=== PATIENT | female | born 1965 | race Caucasian/White ===

== ENCOUNTER 2017-10-19 14:42 | Emergency (ER) | payer MEDICARE, MEDICAID ==
--- NOTE | 2017-10-19 15:40 | ER Document Report ---
ED Medical Screen (RME) - General Chief Complaint: Fall Stated Complaint: FALL/RIGHT SIDE ARM AND BODY PAIN Time Seen by Provider: 10/19/17 15:39 Notes: pt fell twice yesterday, has pain in muliptle sites. no loc TRAVEL OUTSIDE OF THE [place] IN LAST 30 DAYS: No - Related Data Allergies/Adverse Reactions: Penicillins Allergy (Verified 10/19/17 14:44) Past Medical History - Social History Chew tobacco use (# tins/day): No Frequency of alcohol use: None Drug Abuse: None Renal/ Medical History: Denies: Hx Peritoneal Dialysis Physical Exam - Vital signs Vitals: Temp Pulse Resp BP Pulse Ox 97.9 F 65 18 133/92 H 93 10/19/17 14:52 10/19/17 14:52 10/19/17 14:52 10/19/17 14:52 10/19/17 14:52 Course - Vital Signs Vital signs: Temp Pulse Resp BP Pulse Ox 97.9 F 65 18 133/92 H 93 10/19/17 14:52 10/19/17 14:52 10/19/17 14:52 10/19/17 14:52 10/19/17 14:52
--- NOTE | 2017-10-19 16:25 | RADIOLOGY REPORT (SQ) ---
EXAM DESCRIPTION: ANKLE LEFT COMPLETE COMPLETED DATE/TIME: 10/19/2017 4:14 pm REASON FOR STUDY: fall/pain COMPARISON: None. NUMBER OF VIEWS: Three views. TECHNIQUE: AP, lateral, and oblique radiographic images acquired of the left ankle. LIMITATIONS: None. FINDINGS: MINERALIZATION: Normal. BONES: No acute fracture or dislocation. No worrisome bone lesions. JOINTS: Degenerative changes in the tibiotalar joint with sclerosis and osteophytes. Also degenerati ve changes in the subtalar joint. SOFT TISSUES: No soft tissue swelling. No foreign body. OTHER: No other significant finding. IMPRESSION: DEGENERATIVE CHANGES. NO ACUTE FINDINGS. TECHNICAL DOCUMENTATION: JOB ID: [id number] [employer]- All Rights Reserved Reading location - IP/workstation name: [email or web address]
--- NOTE | 2017-10-19 16:26 | RADIOLOGY REPORT (SQ) ---
EXAM DESCRIPTION: HUMERUS RIGHT COMPLETED DATE/TIME: 10/19/2017 4:14 pm REASON FOR STUDY: fall/pain COMPARISON: None. NUMBER OF VIEWS: Two views. TECHNIQUE: Two radiographic images were acquired of the right humerus to include elbow and shoulder in at least one projection. LIMITATIONS: None. FINDINGS: MINERALIZATION: Normal. BONES: No acute fracture or dislocation. No worrisome bone lesions. SOFT TISSUES: No obvious swelling or foreign body. OTHER: No other significant finding. IMPRESSION: NEGATIVE STUDY OF THE RIGHT HUMERUS. NO RADIOGRAPHIC EVIDENCE OF ACUTE INJURY. TECHNICAL DOCUMENTATION: JOB ID: [id number] [employer]- All Rights Reserved Reading location - IP/workstation name: [email or web address]
--- NOTE | 2017-10-19 16:27 | RADIOLOGY REPORT (SQ) ---
EXAM DESCRIPTION: KNEE LEFT 4 VIEW COMPLETED DATE/TIME: 10/19/2017 4:14 pm REASON FOR STUDY: fall/pain COMPARISON: None. NUMBER OF VIEWS: Four views. TECHNIQUE: AP, lateral, and both oblique radiographic images acquired of the left knee. LIMITATIONS: None. FINDINGS: MINERALIZATION: Normal. BONES: No acute fracture or dislocation. No worrisome bone lesions. JOINT: Marked degenerative changes with joint space loss, sclerosis, and osteophytes in all 3 compart ments. SOFT TISSUES: No soft tissue swelling. No radio-opaque foreign body. OTHER: No other significant finding. IMPRESSION: MARKED DEGENERATIVE JOINT DISEASE. NO RADIOGRAPHIC EVIDENCE OF ACUTE INJURY. TECHNICAL DOCUMENTATION: JOB ID: [id number] [employer]- All Rights Reserved Reading location - IP/workstation name: [email or web address]
[2017-10-19] MEDS ORDERED: HYDROCODONE/ACETAMINOPHEN 5-325 MG TABLET PO ONE (17:12)
--- NOTE | 2017-10-19 17:16 | ER Document Report ---
ED Fall - General Chief Complaint: Fall Stated Complaint: FALL/RIGHT SIDE ARM AND BODY PAIN Time Seen by Provider: 10/19/17 15:39 Mode of Arrival: Wheelchair Information source: Patient TRAVEL OUTSIDE OF THE [place] IN LAST 30 DAYS: No - HPI Patient complains to provider of: Trip and fall Occurred: Yesterday Where: Home, Public place Context: Tripped Associated symptoms: None Location of injury/pain: Ankle, Knee, Shoulder Quality of pain: Achy Severity: Moderate Pain Level: 4 Notes: Patient is a 52-year-old female presenting to the emergency room today complaining of pain in her right shoulder, her left knee and her left ankle stemming from 2 trip and falls that she sustained yesterday evening, states that initially she had mild pain, went to bed, got up several times in the middle night to go to the bathroom, and then when she woke up today she had increased pain in these areas, she denies a head injury or loss of consciousness , no nausea or vomiting - Related data Allergies/Adverse Reactions: Penicillins Allergy (Verified 10/19/17 14:44) Past Medical History - General Information source: Patient - Social History Smoking Status: Former Smoker Chew tobacco use (# tins/day): No Frequency of alcohol use: None Drug Abuse: None Family History: Reviewed & Not Pertinent Patient has suicidal ideation: No Patient has homicidal ideation: No Renal/ Medical History: Denies: Hx Peritoneal Dialysis Review of Systems - Review of Systems Constitutional: No symptoms reported EENT: No symptoms reported Cardiovascular: No symptoms reported Respiratory: No symptoms reported Gastrointestinal: No symptoms reported Genitourinary: No symptoms reported Female Genitourinary: No symptoms reported Musculoskeletal: See HPI Skin: No symptoms reported Hematologic/Lymphatic: No symptoms reported Neurological/Psychological: No symptoms reported -: Yes All other systems reviewed and negative Physical Exam - Vital signs Vitals: Temp Pulse Resp BP Pulse Ox 97.9 F 65 18 133/92 H 93 10/19/17 14:52 10/19/17 14:52 10/19/17 14:52 10/19/17 14:52 10/19/17 14:52 Interpretation: Normal - General General appearance: Appears well, Alert - HEENT Head: Normocephalic, Atraumatic Eyes: Normal Pupils: PERRL - Respiratory Respiratory status: No respiratory distress Chest status: Nontender Breath sounds: Normal Chest palpation: Normal - Cardiovascular Rhythm: Regular Heart sounds: Normal auscultation Murmur: No - Abdominal Inspection: Morbidly Obese Distension: No distension Bowel sounds: Normal Tenderness: Nontender Organomegaly: No organomegaly - Back Back: Normal, Nontender - Extremities General upper extremity: Normal color, Normal temperature General lower extremity: Normal color, Normal temperature. No: Albertina's sign Shoulder: Tender - Tender to palpate in the right shoulder anteriorly, in the soft tissue, no deformity, distal sensation and motor is intact, 2+ radial pulses Knee: Tender - Tender to palpate over the left knee with mild swelling, pain with range of motion testing, distal sensation and motor is intact Ankle: Tender - Tender to palpate over medial malleolus, pain with range of motion testing, distal sensation and motor is intact - Neurological Neuro grossly intact: Yes Cognition: Normal Orientation: AAOx4 [place] Coma Scale Eye Opening: Spontaneous [place] Coma Scale Verbal: Oriented [place] Coma Scale Motor: Obeys Commands [place] Coma Scale Total: 15 Speech: Normal Motor strength normal: LUE, RUE, LLE, RLE Sensory: Normal - Psychological Associated symptoms: Normal affect, Normal mood - Skin Skin Temperature: Warm Skin Moisture: Dry Skin Color: Normal Course - Re-evaluation Re-evalutation: 10/19/17 20:00 Imaging findings discussed with patient at bedside which are unremarkable except for mild degenerative changes, patient was placed in an Yoni wrap for the left knee, provided with pain medication and instructions for follow-up, advised to return if symptoms worsen, patient acknowledges understanding and agreement with this plan - Vital Signs Vital signs: Temp Pulse Resp BP Pulse Ox 98.3 F 73 18 138/96 H 94 10/19/17 17:36 10/19/17 17:36 10/19/17 17:36 10/19/17 17:36 10/19/17 17:36 - Diagnostic Test Radiology reviewed: Image reviewed, Reports reviewed Procedures - Immobilization Left Knee Time completed: 19:35 Pre-Proc Neuro Vasc Exam: Normal Immobilizer type: Yoni wrap Performed by: PCT Post-Proc Neuro Vasc Exam: Normal Alignment checked and good: Yes Discharge - Discharge Clinical Impression: Contusion of right arm Qualifiers: Encounter type: initial encounter Qualified Code(s): S40.021A - Contusion of right upper arm, initial encounter Sprain of left ankle Qualifiers: Encounter type: initial encounter Involved ligament of ankle: unspecified ligament Qualified Code(s): S93.402A - Sprain of unspecified ligament of left ankle, initial encounter Left knee sprain Qualifiers: Encounter type: initial encounter Involved ligament of knee: unspecified ligament Qualified Code(s): S83.92XA - Sprain of unspecified site of left knee, initial encounter Condition: Stable Disposition: HOME, SELF-CARE Instructions: Contusion ([facility]), Ice & Elevation ([facility]), Ice Packs ([facility]), Oral Narcotic Medication ([facility]), Sprained Ankle ([facility]), Sprained Knee ([facility]) Additional Instructions: Follow up with your primary care provider and an orthopedic surgeon in one to 2 days. Return to the emergency room immediately if symptoms worsen or any additional concerns. Prescriptions: Hydrocodone/Acetaminophen [Hydrocodon-Acetaminophen 5-325] 1 each PO Q6 #20 tablet Referrals: GERALDINE BRADEN DO [ACTIVE STAFF] - Follow up as needed
[2017-10-19 17:38] VITALS: BP 138/96
== END 2017-10-19 17:39 | disposition home or self-care (01) ==
LOC: ER 14:42
DX: S40.021A Contusion of right upper arm, initial encounter (principal); S93.402A Sprain of unspecified ligament of left ankle, initial encounter; S83.92XA Sprain of unspecified site of left knee, initial encounter; M79.1 Myalgia; E66.01 Morbid (severe) obesity due to excess calories; W01.0XXA Fall on same level from slipping, tripping and stumbling without subsequent striking against object, initial encounter; Y92.009 Unspecified place in unspecified non-institutional (private) residence as the place of occurrence of the external cause; Z88.0 Allergy status to penicillin
CPT/HCPCS: 99283; 73610; 73060; 73562; A9270

== ENCOUNTER 2018-06-06 13:57 | Emergency (ER) | payer MEDICARE, MEDICAID ==
--- NOTE | 2018-06-06 14:28 | ER Document Report ---
ED Medical Screen (RME) - General Chief Complaint: Headache Stated Complaint: HEADACHE, RIGHT ARM PAIN Time Seen by Provider: 06/06/18 14:17 Notes: Patient is a 52-year-old female with history of severe rheumatoid arthritis that presents to the emergency department for chief complaint of posterior headache and neck pain for almost 2 weeks. Patient states that she has pain with moving her neck, and then started having pain going down her right arm that started on Thursday. She did receive her flu vaccine in her right arm on Thursday as well.. ROS: Other than noted above, the 12 point review of systems was reviewed with the patient and were negative, all pertinent findings are included in the HPI. PHYSICAL EXAMINATION: Vital signs reviewed. GENERAL: Morbidly obese female, in no acute distress HEAD: Atraumatic, normocephalic. EYES: Pupils equal round extraocular movements intact, conjunctiva are normal. ENT: Nares patent NECK: Decreased range of motion of the neck, and tenderness with palpation bilaterally, and pain with rotation of the neck. Midline tenderness CV: Heart regular rate and rhythm LUNGS: No respiratory distress Musculoskeletal: Severe arthritic deformities to the hands bilaterally NEUROLOGICAL: Normal speech PSYCH: Normal mood, normal affect. MDM: Patient seen and examined for rapid initial assessment. Vital signs reviewed. A comprehensive ED assessment and evaluation of the patient, analysis of test results and completion of the medical decision making process will be conducted by additional ED providers. *Note is created using voice recognition software and may contain spelling, syntax or grammatical errors. TRAVEL OUTSIDE OF THE [place] IN LAST 30 DAYS: No - Related Data Allergies/Adverse Reactions: Penicillins Allergy (Verified 03/21/18 15:01) Past Medical History - Past Medical History Cardiac Medical History: Reports: Hx Hypertension Endocrine Medical History: Reports: Hx Diabetes Mellitus Type 2 Renal/ Medical History: Denies: Hx Peritoneal Dialysis Musculoskeltal Medical History: Reports Hx Arthritis - rheumatoid arthritis Psychiatric Medical History: Denies: Hx Depression Past Surgical History: Reports: Hx Abdominal Surgery - hernia repair, Hx Orthopedic Surgery - right hand, great toe, Hx Urinary Tract Surgery - bladder tacComment Only: Hx Tonsillectomy - adenoids Physical Exam - Vital signs Vitals: Temp Pulse Resp BP Pulse Ox 98.1 F 73 23 H 138/92 H 91 L 06/06/18 14:12 06/06/18 14:12 06/06/18 14:12 06/06/18 14:12 06/06/18 14:12 Course - Vital Signs Vital signs: Temp Pulse Resp BP Pulse Ox 98.1 F 73 23 H 138/92 H 91 L 06/06/18 14:12 06/06/18 14:12 06/06/18 14:12 06/06/18 14:12 06/06/18 14:12
[2018-06-06] MEDS ORDERED: MORPHINE SULFATE 10 MG/ML INJ IM ONE (14:31)
[2018-06-06] MEDS ORDERED: METOCLOPRAMIDE HCL 10 MG TABLET PO ONE (14:31)
--- NOTE | 2018-06-06 15:20 | RADIOLOGY REPORT (SQ) ---
EXAM DESCRIPTION: CT HEAD WITHOUT COMPLETED DATE/TIME: 06/06/2018 3:09 pm REASON FOR STUDY: headache COMPARISON: Concurrent cervical spine CT TECHNIQUE: Axial images acquired through the brain without intravenous contrast. Images reviewed wi th bone, brain and subdural windows. Additional sagittal and coronal reconstructions were generated. Images stored on PACS. All CT scanners at this facility use dose modulation, iterative reconstruction, and/or weight based d osing when appropriate to reduce radiation dose to as low as reasonably achievable (ALARA). [facility]: Dose Right [facility]: CareDose [facility]: Dose Right [facility]: Teradose 4D [facility]: Smart [employer] RADIATION DOSE: CT Rad equipment meets quality standard of care and radiation dose reduction techniq ues were employed. CTDIvol: 53.2 mGy. DLP: 1124 mGy-cm. mGy. LIMITATIONS: None. FINDINGS: VENTRICLES: Normal size and contour. CEREBRUM: No masses. No hemorrhage. No midline shift. No evidence for acute infarction. Normal gra y/white matter differentiation. No areas of low density in the white matter. CEREBELLUM: No masses. No hemorrhage. No alteration of density. No evidence for acute infarction. EXTRAAXIAL SPACES: No fluid collections. No masses. ORBITS AND GLOBE: No intra- or extraconal masses. Normal contour of globe without masses. CALVARIUM: No fracture. PARANASAL SINUSES: No fluid or mucosal thickening. SOFT TISSUES: Retropharyngeal course of the carotid arteries, incompletely visualized. No mass or h ematoma. OTHER: No other significant finding. IMPRESSION: NORMAL BRAIN CT WITHOUT CONTRAST. EVIDENCE OF ACUTE STROKE: NO. COMMENT: Quality ID # [id number]: Final reports with documentation of one or more dose reduction techniques (e.g., Automated exposure control, adjustment of the mA and/or kV according to patient size, use of iterative reconstruction technique) TECHNICAL DOCUMENTATION: JOB ID: [id number] [employer]- All Rights Reserved Reading location - IP/workstation name: [email or web address]
--- NOTE | 2018-06-06 15:23 | RADIOLOGY REPORT (SQ) ---
EXAM DESCRIPTION: CT CERVICAL SPINE WITHOUT COMPLETED DATE/TIME: 06/06/2018 3:08 pm REASON FOR STUDY: neck pain, headache, Right radicular pain COMPARISON: Concurrent head CT TECHNIQUE: Axial images acquired through the cervical spine without intravenous contrast. Images re viewed with lung, soft tissue and bone windows. Reconstructed coronal and sagittal MPR images review ed. Images stored on PACS. All CT scanners at this facility use dose modulation, iterative reconstruction, and/or weight based d osing when appropriate to reduce radiation dose to as low as reasonably achievable (ALARA). [facility]: Dose Right [facility]: CareDose [facility]: Dose Right [facility]: Teradose 4D [facility]: [employer] RADIATION DOSE: CT Rad equipment meets quality standard of care and radiation dose reduction techniq ues were employed. CTDIvol: 31.4 mGy. DLP: 653 mGy-cm. mGy. LIMITATIONS: None. FINDINGS: ALIGNMENT: Anatomic. MINERALIZATION: Normal. VERTEBRAL BODIES: No fractures or dislocation. DISCS: No significant disc disease. FACETS, LATERAL MASSES, POSTERIOR ELEMENTS: No fractures. No dislocation. No acute findings. Early facet arthrosis. HARDWARE: None in the spine. VISUALIZED RIBS: No fractures. LUNG APICES AND SOFT TISSUES: Calcified granuloma of the right upper lobe. Visualized lung apices ar e otherwise clear. Retropharyngeal course of the carotid arteries. Metallic clips in the right supr aclavicular region. OTHER: No other significant finding. IMPRESSION: 1. No acute fracture listhesis of the cervical spine. 2. Early facet arthrosis. TECHNICAL DOCUMENTATION: JOB ID: [id number] Quality ID # [id number]: Final reports with documentation of one or more dose reduction techniques (e.g., Au tomated exposure control, adjustment of the mA and/or kV according to patient size, use of iterative reconstruction technique) 2010 [employer]- All Rights Reserved Reading location - IP/workstation name: [email or web address]
[2018-06-06] MEDS ORDERED: KETOROLAC TROMETHAMINE 60 MG/2 ML SDV IM ONE (16:14)
[2018-06-06] MEDS ORDERED: PREDNISONE 20 MG TABLET PO ONE (16:14)
[2018-06-06] MEDS ORDERED: METHOCARBAMOL 500 MG TABLET PO ONE (16:15)
--- NOTE | 2018-06-06 16:21 | ER Document Report ---
ED General - General Chief Complaint: Headache Stated Complaint: HEADACHE, RIGHT ARM PAIN Time Seen by Provider: 06/06/18 14:17 Mode of Arrival: Wheelchair Information source: Patient Notes: This is a chronically debilitated patient with a history of rheumatoid arthritis , COPD (2-1/2 L nc), LUKE (CPAP) who presents to the emergency room with diffuse body pain for the past 2 weeks. She states that it hurts to move her neck and her arm. She states that she has had increasing pain after flu shot on the right side. TRAVEL OUTSIDE OF THE [place] IN LAST 30 DAYS: No - HPI Onset: Other - Patient's pain is been going on for the past 2 weeks Onset/Duration: Gradual Quality of pain: Dull Severity: Moderate Pain Level: 2 Associated symptoms: denies: Chest pain, Fever, Shortness of breath Exacerbated by: Movement Relieved by: Remaining still Similar symptoms previously: Yes Recently seen / treated by doctor: Yes - Related Data Allergies/Adverse Reactions: Penicillins Allergy (Verified 03/21/18 15:01) Past Medical History - General Information source: Patient - Social History Smoking Status: Former Smoker Cigarette use (# per day): No Chew tobacco use (# tins/day): No Frequency of alcohol use: None Drug Abuse: None Lives with: Family Family History: Reviewed & Not Pertinent Patient has suicidal ideation: No Patient has homicidal ideation: No - Past Medical History Cardiac Medical History: Reports: Hx Hypertension Pulmonary Medical History: Reports: Hx COPD Endocrine Medical History: Reports: Hx Diabetes Mellitus Type 2 Renal/ Medical History: Denies: Hx Peritoneal Dialysis Musculoskeletal Medical History: Reports Hx Arthritis - rheumatoid arthritis, Reports Other - Rheumatoid arthritis Psychiatric Medical History: Denies: Hx Depression Past Surgical History: Reports: Hx Abdominal Surgery - hernia repair, Hx Orthopedic Surgery - right hand, great toe, Hx Urinary Tract Surgery - bladder tacComment Only: Hx Tonsillectomy - adenoids Review of Systems - Review of Systems Constitutional: denies: Chills, Fever EENT: No symptoms reported Cardiovascular: No symptoms reported Respiratory: No symptoms reported Gastrointestinal: No symptoms reported Genitourinary: No symptoms reported Female Genitourinary: No symptoms reported Musculoskeletal: See HPI Skin: No symptoms reported Hematologic/Lymphatic: No symptoms reported Neurological/Psychological: No symptoms reported Physical Exam - Vital signs Vitals: Temp Pulse Resp BP Pulse Ox 98.1 F 73 23 H 138/92 H 91 L 06/06/18 14:12 06/06/18 14:12 06/06/18 14:12 06/06/18 14:12 06/06/18 14:12 Notes: Physical exam: GENERAL: Patient is alert and oriented x3, no acute distress. HEAD: Atraumatic, normocephalic. EYES: Pupils equal round and reactive to light, extraocular movements intact, sclera anicteric, conjunctiva are normal. ENT: TMs normal, nares patent, oropharynx clear without exudates. Moist mucous membranes. NECK: Normal range of motion, supple without obvious mass or JVD. LUNGS: Breath sounds clear to auscultation bilaterally and equal. No wheezes rales or rhonchi. HEART: Regular rate and rhythm without murmurs, rubs or gallops. ABDOMEN: Soft, normoactive bowel sounds. No tenderness to palpation. No guarding, no rebound. No masses appreciated. EXTREMITIES: Normal range of motion, no pitting or edema. No clubbing or cyanosis. NEUROLOGICAL: Cranial nerves II through XII grossly intact. Normal speech, moving all extremities. PSYCH: Normal mood, normal affect. SKIN: Warm, Dry, normal turgor, no rashes or lesions noted. Course - Vital Signs Vital signs: Temp Pulse Resp BP Pulse Ox 98 F 73 22 H 150/95 H 96 06/06/18 16:49 06/06/18 16:49 06/06/18 16:49 06/06/18 16:49 06/06/18 16:49 - Diagnostic Test Radiology reviewed: Image reviewed, Reports reviewed - CT of the head shows no acute process. CT of the neck shows arthrosis. Discharge - Discharge Clinical Impression: Arthritis to the neck, Rheumatoid arthritis Condition: Stable Disposition: HOME, SELF-CARE Additional Instructions: We discussed, the head CT showed no evidence of stroke or bleed or mass. The CT of the neck did show significant arthritis. I do believe a lot of your pain is related to the rheumatoid arthritis and the arthritis in the neck. I want you to follow-up with your automobile service writer as well as your primary care doctor. In the meantime: Take the oxycodone for pain. See the narcotic instructions below. Take the Robaxin for muscle relaxation. Take the prednisone as below: take 4 tabs X 4 days, then 3 tabs X 4 days, then 2 tabs X 4 days, then 1 tab X 4 days, the 1/2 tab X 4 days. The pain medicine you're taking prescribed as a narcotic. There are several important things you should know about this medicine: 1. Taking narcotics for too long can lead to physical and mental dependence. Take this medicine only if really needed and in the lowest quantity to achieve pain relief. 2. Do not drink alcohol while on this medicine. Alcohol interacts with narcotics and the combination can be dangerous. 3. Do not drive or operate machinery while on this medicine. 4. Narcotics do cause constipation, so drink plenty of fluids and daily stool softeners. Return to the emergency room for fever, worsening pain or any concerns or getting worse. Prescriptions: Oxycodone HCl 5 mg PO Q4HP PRN #20 capsule PRN Reason: Methocarbamol [Robaxin] 500 mg PO BID #20 tablet Prednisone 10 mg PO DAILY #42 tab.ds.pk Referrals: TACOS TOBIN NP [Primary Care Provider] - Follow up tomorrow
[2018-06-06 16:50] VITALS: BP 150/95
== END 2018-06-06 16:50 | disposition home or self-care (01) ==
LOC: ER 13:57
DX: M06.9 Rheumatoid arthritis, unspecified (principal); R51 Headache; M79.601 Pain in right arm; J44.9 Chronic obstructive pulmonary disease, unspecified; I10 Essential (primary) hypertension; E11.9 Type 2 diabetes mellitus without complications; Z88.0 Allergy status to penicillin
CPT/HCPCS: 99284; 96372; 70450; 72125; J1885; A9270 ×3; J2270; J7512

== ENCOUNTER 2018-06-23 17:15 | Inpatient (IN) | payer MEDICARE, MEDICAID ==
[2018-06-23] MEDS ORDERED: ALBUTEROL SULFATE 0.083% NEB 2.5 MG/3 ML AMPUL NEB ONE (17:55)
[2018-06-23] MEDS ORDERED: METHYLPREDNISOLONE INJ 125 MG/2 ML SDV IV ONE (17:55)
[2018-06-23] MEDS ORDERED: IPRATROPIUM/ALBUTEROL 0.5-2.5 MG/3 ML AMPUL NEB ONE ×3 (17:55→19:10)
--- NOTE | 2018-06-23 17:57 | ER Document Report ---
ED Medical Screen (RME) - General Chief Complaint: Cough Stated Complaint: DIFFICULTY BREATHING Time Seen by Provider: 06/23/18 17:44 TRAVEL OUTSIDE OF THE [place] IN LAST 30 DAYS: No - HPI Notes: 06/23/18 17:56 Patient is a 52-year-old female with COPD on 2.5 L oxygen at home that presents to the emergency department for chief complaint of shortness of breath. Patient states 2 weeks of progressively worsening shortness of breath and dyspnea. She has been using albuterol at home with minimal relief. She reports increased sputum and sinus congestion. She denies fevers. She did get her influenza v accine 3 weeks ago. She denies chest pain but states she feels a tightness in her chest. ROS: GENERAL: Denies fever of chills CV: Denies chest pain PHYSICAL EXAMINATION: GENERAL: Well-appearing, obese and in no acute distress. HEAD: Atraumatic, normocephalic. EYES: Pupils equal round extraocular movements intact, conjunctiva are normal. ENT: Nares patent NECK: Normal range of motion LUNGS: Mild increased work of breathing Musculoskeletal: Normal range of motion NEUROLOGICAL: Normal speech, normal gait. PSYCH: Normal mood, normal affect. MDM: Patient seen and examined for rapid initial assessment. Vital signs reviewed. A comprehensive ED assessment and evaluation of the patient, analysis of test results and completion of the medical decision making process will be conducted by additional ED providers. - Related Data Allergies/Adverse Reactions: Penicillins Allergy (Verified 06/23/18 17:51) Past Medical History - Social History Chew tobacco use (# tins/day): No Frequency of alcohol use: None Drug Abuse: None - Past Medical History Cardiac Medical History: Reports: Hx Hypercholesterolemia, Hx Hypertension Pulmonary Medical History: Reports: Hx COPD Endocrine Medical History: Reports: Hx Diabetes Mellitus Type 2 Renal/ Medical History: Denies: Hx Peritoneal Dialysis Musculoskeltal Medical History: Reports Hx Arthritis - rheumatoid arthritis Psychiatric Medical History: Denies: Hx Depression Past Surgical History: Reports: Hx Abdominal Surgery - hernia repair, Hx Orthopedic Surgery - right hand, great toe, Hx Thyroid Surgery - hypo, Hx Urinary Tract Surgery - bladder tacComment Only: Hx Tonsillectomy - adenoids Physical Exam - Vital signs Vitals: Temp Pulse Resp BP Pulse Ox 98.4 F 96 28 H 144/99 H 93 06/23/18 17:26 06/23/18 17:26 06/23/18 17:26 06/23/18 17:26 06/23/18 17:26 Course - Vital Signs Vital signs: Temp Pulse Resp BP Pulse Ox 98.4 F 96 28 H 144/99 H 93 06/23/18 17:26 06/23/18 17:26 06/23/18 17:26 06/23/18 17:26 06/23/18 17:26 Doctor's Discharge - Discharge Referrals: TACOS TOBIN 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
--- NOTE | 2018-06-23 18:19 | RADIOLOGY REPORT (SQ) ---
EXAM DESCRIPTION: CHEST SINGLE VIEW COMPLETED DATE/TIME: 06/23/2018 6:06 pm REASON FOR STUDY: cough COMPARISON: 03/21/2018 EXAM PARAMETERS: NUMBER OF VIEWS: One view. TECHNIQUE: Single frontal radiographic view of the chest acquired. RADIATION DOSE: NA LIMITATIONS: None. FINDINGS: LUNGS AND PLEURA: Persistent right upper lobe mass measuring 2 cm MEDIASTINUM AND HILAR STRUCTURES: Possible right hilar mass HEART AND VASCULAR STRUCTURES: Heart normal in size. Normal vasculature. BONES: No acute findings. HARDWARE: None in the chest. OTHER: No other significant finding. IMPRESSION: Persistent right upper lobe mass seen on prior CT. Possible right hilar mass No acute Findings TECHNICAL DOCUMENTATION: JOB ID: [id number] [employer]- All Rights Reserved Reading location - IP/workstation name: [email or web address]
[2018-06-23 18:27] LABS: ABSOLUTE EOSINOPHILS # (AUTO) 0.2 10^3/uL (0.0-0.6); ABSOLUTE LYMPHOCYTES (AUTO) 1.7 10^3/uL (0.5-4.7); ABSOLUTE MONOCYTES (AUTO) 0.9 10^3/uL (0.1-1.4); ABSOLUTE NEUT (AUTO) 9.4 10^3/uL (1.7-8.2); BASOPHILS % (AUTO) 0.4 % (0-2); EOSINOPHILS % (AUTO) 1.2 % (0-6); HEMATOCRIT 45.1 % (36.0-47.0); HEMOGLOBIN 15.3 g/dL (12.0-15.5); MEAN CORPUSCULAR HEMOGLOBIN 30.9 pg (27.0-33.4); MEAN CORPUSCULAR HGB CONC 33.8 g/dL (32.0-36.0); MEAN CORPUSCULAR VOLUME 91 fl (80-97); MONOCYTES % (AUTO) 7.4 % (3-13); PLATELET COUNT 311 10^3/uL (150-450); RED BLOOD COUNT 4.94 10^6/uL (3.72-5.28); RED CELL DISTRIBUTION WIDTH 13.5 % (11.5-14.0); TOTAL CELLS COUNTED % (AUTO) 100 %; WHITE BLOOD COUNT 12.2 10^3/uL (4.0-10.5)
[2018-06-23] MEDS ORDERED: NORMAL SALINE 500 ML IV ONE (19:09)
[2018-06-23] MEDS ORDERED: CEFTRIAXONE 1 GM/D5W RTU 1 GM/50 ML RTUPB IV ONE (19:18)
--- NOTE | 2018-06-23 19:20 | ER Document Report ---
ED General - General Chief Complaint: Cough Stated Complaint: DIFFICULTY BREATHING Time Seen by Provider: 06/23/18 17:44 Mode of Arrival: Medic Information source: Patient Notes: This is a debilitated 52-year-old female with rheumatoid arthritis, morbid obesity, COPD (2.5 L nasal cannula), obstructive sleep apnea, who is brought in by EMS because of worsening wheezing, shortness of breath, cough, congestion. Patient's been taking Mucinex for the past week. TRAVEL OUTSIDE OF THE [place] IN LAST 30 DAYS: No - HPI Onset: Last week Onset/Duration: Gradual Quality of pain: No pain Severity: None Pain Level: Denies Associated symptoms: Chills, Nonproductive cough, Shortness of breath Exacerbated by: Movement Relieved by: Remaining still Similar symptoms previously: Yes Recently seen / treated by doctor: Yes - Related Data Allergies/Adverse Reactions: Penicillins Allergy (Verified 06/23/18 17:51) Past Medical History - General Information source: Patient - Social History Smoking Status: Former Smoker Cigarette use (# per day): No - Patient quit in 2011 Chew tobacco use (# tins/day): No Frequency of alcohol use: None Drug Abuse: None Lives with: Family Family History: Reviewed & Not Pertinent Patient has suicidal ideation: No Patient has homicidal ideation: No - Past Medical History Cardiac Medical History: Reports: Hx Hypercholesterolemia, Hx Hypertension Pulmonary Medical History: Reports: Hx COPD, Hx Sleep Apnea Neurological Medical History: Reports: None Endocrine Medical History: Reports: Hx Diabetes Mellitus Type 2 Renal/ Medical History: Reports: None. Denies: Hx Peritoneal Dialysis Malignancy Medical History: Reports: Other - She reports history of a rheumatoid pulmonary nodule GI Medical History: Reports: None Musculoskeletal Medical History: Reports Hx Arthritis - rheumatoid arthritis Skin Medical History: Reports None Psychiatric Medical History: Reports: None Denies: Hx Depression Traumatic Medical History: Reports: None Infectious Medical History: Reports: None Past Surgical History: Reports: Hx Abdominal Surgery - hernia repair, Hx Orthopedic Surgery - right hand, great toe, Hx Thyroid Surgery - hypo, Hx Urinary Tract Surgery - bladder tacComment Only: Hx Tonsillectomy - adenoids Review of Systems - Review of Systems Constitutional: Chills. denies: Fever EENT: No symptoms reported Cardiovascular: Dyspnea. denies: Chest pain, Palpitations, Heart racing Respiratory: Cough, Short of breath, Wheezing Gastrointestinal: denies: Abdominal pain, Vomiting Genitourinary: No symptoms reported Female Genitourinary: No symptoms reported Musculoskeletal: See HPI Skin: No symptoms reported Hematologic/Lymphatic: No symptoms reported Neurological/Psychological: No symptoms reported Physical Exam - Vital signs Vitals: Temp Pulse Resp BP Pulse Ox 98.4 F 96 28 H 144/99 H 93 06/23/18 17:26 06/23/18 17:26 06/23/18 17:26 06/23/18 17:26 06/23/18 17:26 Notes: Physical exam: GENERAL: Patient is alert and answering questions, blood pressure 138/80, pulse of 95, O2 sat 94%, respiratory rate 22 HEAD: Atraumatic, normocephalic. EYES: Pupils equal round and reactive to light, extraocular movements intact, sclera anicteric, conjunctiva are normal. ENT: TMs normal, nares patent, oropharynx clear without exudates. Moist mucous membranes. NECK: Normal range of motion, supple without obvious mass or JVD. LUNGS: Breath sounds clear to auscultation bilaterally and equal. No wheezes rales or rhonchi. HEART: Regular rate and rhythm without murmurs, rubs or gallops. ABDOMEN: Soft, normoactive bowel sounds. No tenderness to palpation. No guarding, no rebound. No masses appreciated. EXTREMITIES: Normal range of motion, no pitting or edema. No clubbing or cyanosis. NEUROLOGICAL: Cranial nerves II through XII grossly intact. Normal speech, moving all extremities. PSYCH: Normal mood, normal affect. SKIN: Warm, Dry, normal turgor, no rashes or lesions noted. Course - Vital Signs Vital signs: Temp Pulse Resp BP Pulse Ox 98.7 F 92 18 137/73 H 95 06/24/18 00:04 06/24/18 00:20 18 00:20 06/24/18 00:04 06/24/18 00:20 - Laboratory Result Diagrams: 06/23/18 18:14 06/23/18 18:50 Laboratory results interpreted by me: 06/23/18 06/23/18 18:14 18:50 WBC 12.2 H Absolute Neutrophils 9.4 H Carbon Dioxide 31 H BUN 22 H Glucose 113 H Calcium 11.4 H - Diagnostic Test Radiology reviewed: Image reviewed, Reports reviewed - Upper lobe mass (known) Critical Care Note - Critical Care Note Total time excluding time spent on procedures (mins): 60 Discharge - Discharge Clinical Impression: COPD exacerbation Condition: Stable Disposition: ADMITTED INPATIENT Admitting Provider: Hospitalist - dr pedersen Unit Admitted: Telemetry
[2018-06-23 19:21] LABS: ANION GAP 9 (5-19); BLOOD UREA NITROGEN 22 mg/dL (7-20); CALCIUM 11.4 mg/dL (8.4-10.2); CARBON DIOXIDE 31 mmol/L (22-30); CHLORIDE 100 mmol/L (98-107); GLUCOSE 113 mg/dL (75-110); POTASSIUM 4.2 mmol/L (3.6-5.0); SODIUM 139.5 mmol/L (137-145)
[2018-06-23] MEDS ORDERED: ACETAMINOPHEN 325 MG TABLET PO ONE (21:13)
[2018-06-23] MEDS ORDERED: CEFTRIAXONE SODIUM 1,000 MG in DEXTROSE 5%-WATER 50 ML IV ONE (21:30)
[2018-06-23] MEDS ORDERED: ACETAMINOPHEN 325 MG TABLET PO PRN (22:05)
[2018-06-23] MEDS ORDERED: DEXTROSE 40% GEL 15 GM TUBE PO PRN ×2 (22:05)
[2018-06-23] MEDS ORDERED: GUAIFENESIN SYRP 200 MG/10 ML UDC PO PRN (22:05)
[2018-06-23] MEDS ORDERED: IPRATROPIUM/ALBUTEROL 0.5-2.5 MG/3 ML AMPUL NEB PRN (22:05)
[2018-06-23] MEDS ORDERED: DEXTROSE 50%-WATER 25 GM/50 ML DISP.SYRIN IV PRN ×2 (22:05)
[2018-06-23] MEDS ORDERED: INSULIN LISPRO 100 UNIT/ML 3 ML VIAL SUBCUT PRN (22:05)
[2018-06-23] MEDS ORDERED: GLUCAGON,HUMAN RECOMB 1 MG INJ IM PRN (22:05)
--- NOTE | 2018-06-23 22:18 | PDOC H&P ---
History of Present Illness Admission Date/PCP: 06/23/18 21:54 TACOS TOBIN NP Patient complains of: Shortness of breath and cough History of Present Illness: WOODROW RUSSELL is a 52 year old female with a past medical history of morbid obesity with a BMI of 77, obstructive sleep apnea, morbid obesity hypoventilation syndrome, oxygen dependent COPD, chronic bronchitis, rheumatoid arthritis, type 2 diabetes and profound physical debility. Patient presents with 4 days of shortness of breath and productive cough of yellow sputum, rhinorrhea and postnasal drip. In the emergency room she is found to have hypoxia of 88% on room air fever, leukocytosis but an unremarkable chest x-ray. Prompting empiric antibiotics, supplemental oxygen and referral to hospitalist for admission. 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 GI Medical History: Reports: None Musculoskeltal Medical History: Reports: Arthritis - rheumatoid arthritis Skin Medical History: Reports: None Psychiatric Medical History: Reports: None Denies: Depression, Tobacco Dependency Traumatic Medical History: Reports: None Infectious Medical History: Reports: None Past Surgical History Past Surgical History: Reports: Orthopedic Surgery - right hand, great toe Comment Only: Tonsillectomy - adenoids Social History Information Source: Patient, REPLACED BY [facility] Records Lives with: Family Smoking Status: Former Smoker Frequency of Alcohol Use: None Hx Recreational Drug Use: No Drugs: None Hx Prescription Drug Abuse: No - Advance Directive Resuscitation Status: Full Code Family History Family History: Arthritis Parental Family History Reviewed: Yes Children Family History Reviewed: Yes Sibling(s) Family History Reviewed.: Yes Medication/Allergy Home Medications: Acetaminophen [Tylenol Extra Strength] 1,000 mg PO Q6HP PRN 03/22/18 Albuterol Sulfate [Proair Respiclick] 90 mcg IH .ASDIR 03/22/18 Amlodipine Besylate [Norvasc 10 mg Tablet] 10 mg PO DAILY 03/22/18 Aspirin [Adult Aspirin] 81 mg PO DAILY 03/22/18 Atorvastatin Calcium [Lipitor 20 mg Tablet] 20 mg PO DAILY 03/22/18 Calcium Carbonate/Vitamin D3 [Calcium 500 + Vit D Caplet] 1 each PO DAILY 03/22/18 Levothyroxine Sodium [Synthroid 0.025 mg Tablet] 25 mcg PO DAILY 03/22/18 Levothyroxine Sodium [Synthroid] 200 mcg PO DAILY 03/22/18 Metformin HCl [Glucophage 500 mg Tablet] 500 mg PO Q12 03/22/18 Metoprolol Tartrate [Lopressor 50 mg Tablet] 50 mg PO DAILY 03/22/18 Umeclidinium Brm/Vilanterol Tr [Anoro Ellipta 62.5-25 Mcg INH] 1 each IH DAILY 03/22/18 Prednisone [Deltasone 20 mg Tablet] 40 mg PO DAILY #6 tablet 03/25/18 Methocarbamol [Robaxin] 500 mg PO BID #20 tablet 06/06/18 Oxycodone HCl 5 mg PO Q4HP PRN #20 capsule 06/06/18 Prednisone 10 mg PO DAILY #42 tab.ds.pk 06/06/18 Allergies/Adverse Reactions: Penicillins Allergy (Verified 06/23/18 17:51) Review of Systems Constitutional: PRESENT: fatigue, weakness. ABSENT: chills, fever(s), headache(s), weight gain, weight loss Eyes: ABSENT: visual disturbances Ears: ABSENT: hearing changes Nose, Mouth, and Throat: PRESENT: as per HPI, sore throat. ABSENT: headache(s) Cardiovascular: ABSENT: chest pain, dyspnea on exertion, edema, orthropnea, palpitations Respiratory: PRESENT: as per HPI, cough, dyspnea, sputum. ABSENT: hemoptysis Gastrointestinal: ABSENT: abdominal pain, constipation, diarrhea, hematemesis, hematochezia, nausea, vomiting Genitourinary: ABSENT: dysuria, hematuria Musculoskeletal: ABSENT: joint swelling Integumentary: ABSENT: rash, wounds Neurological: ABSENT: abnormal gait, abnormal speech, confusion, dizziness, focal weakness, syncope Psychiatric: ABSENT: anxiety, depression, homidical ideation, suicidal ideation Endocrine: ABSENT: cold intolerance, heat intolerance, polydipsia, polyuria Hematologic/Lymphatic: ABSENT: easy bleeding, easy bruising Physical Exam Vital Signs: Temp Pulse Resp BP Pulse Ox 98.5 F 96 22 H 146/92 H 92 06/23/18 21:07 06/23/18 17:26 06/23/18 20:00 06/23/18 18:56 06/23/18 20:00 Intake & Output 06/22/18 06/23/18 06/24/18 11:59 11:59 11:59 Intake Total 550 Balance 550 Weight 166.8 kg General appearance: PRESENT: cooperative, mild distress, morbidly obese. ABSENT: disheveled Head exam: PRESENT: atraumatic, normocephalic Eye exam: PRESENT: conjunctiva pink, EOMI, PERRLA. ABSENT: scleral icterus Ear exam: PRESENT: normal external ear exam Mouth exam: PRESENT: moist, tongue midline Neck exam: ABSENT: carotid bruit, JVD, lymphadenopathy, thyromegaly Respiratory exam: PRESENT: accessory muscle use, clear to auscultation yung, prolonged expiratory phas, symmetrical, tachypnea. ABSENT: rales, rhonchi, wheezes Cardiovascular exam: PRESENT: RRR. ABSENT: diastolic murmur, rubs, systolic murmur Pulses: PRESENT: normal dorsalis pedis pul Vascular exam: PRESENT: normal capillary refill GI/Abdominal exam: PRESENT: normal bowel sounds, soft. ABSENT: distended, guarding, mass, organolmegaly, rebound, tenderness Rectal exam: PRESENT: deferred Extremities exam: PRESENT: full ROM, +1 edema. ABSENT: calf tenderness, clubbing, pedal edema Neurological exam: PRESENT: alert, awake, oriented to person, oriented to place, oriented to time, oriented to situation, CN II-XII grossly intact. ABSENT: motor sensory deficit Psychiatric exam: PRESENT: appropriate affect, normal mood. ABSENT: homicidal ideation, suicidal ideation Skin exam: PRESENT: dry, intact, warm. ABSENT: cyanosis, rash Results Laboratory Results: 06/23/18 18:14 06/23/18 18:50 06/23/18 06/23/18 06/23/18 18:14 18:14 18:50 WBC 12.2 H RBC 4.94 Hgb 15.3 Hct 45.1 MCV 91 MCH 30.9 MCHC 33.8 RDW 13.5 Plt Count 311 Seg Neutrophils % 77.0 Lymphocytes % 14.0 Monocytes % 7.4 Eosinophils % 1.2 Basophils % 0.4 Absolute Neutrophils 9.4 H Absolute Lymphocytes 1.7 Absolute Monocytes 0.9 Absolute Eosinophils 0.2 Absolute Basophils 0.0 Sodium Cancelled 139.5 Potassium Cancelled 4.2 Chloride Cancelled 100 Carbon Dioxide Cancelled 31 H Anion Gap Cancelled 9 BUN Cancelled 22 H Creatinine Cancelled 0.74 Est GFR ( Amer) Cancelled > 60 Est GFR (Non-Af Amer) Cancelled > 60 Glucose Cancelled 113 H Calcium Cancelled 11.4 H 06/23/18 06/23/18 18:14 18:50 Troponin I Cancelled < 0.012 Impressions: Chest X-Ray 06/23/18 17:44 IMPRESSION: Persistent right upper lobe mass seen on prior CT. Possible right hilar mass No acute Findings Assessment & Plan - Diagnosis (1) Acute exacerbation of chronic bronchitis Is this a current diagnosis for this admission?: Yes Plan: Observation on monitored bed, incentive spirometry, flutter valve, chlorpheniramine, Flonase and antibiotics. Consider steroids if not improved (2) Acute and chronic respiratory failure Is this a current diagnosis for this admission?: Yes Plan: Multifactorial secondary to morbid obesity hypoventilation and acute bronchitis, #1 and BiPAP. (3) Morbid obesity with alveolar hypoventilation Is this a current diagnosis for this admission?: Yes Plan: BiPAP while asleep, evaluate TSH (4) Hypercalcemia Is this a current diagnosis for this admission?: Yes Plan: Unclear cause, reevaluate in a.m. chemistry after hydration (5) Diabetes 1.5, managed as type 2 Is this a current diagnosis for this admission?: Yes Plan: Follow-up A1c, hold metformin, Humalog sliding scale q. before meals - Time Time Spent: 50 to 70 Minutes - Inpatient Certification Medical Necessity: Need Close Monitoring Due to Risk of Patient Decompensation
[2018-06-23] MEDS ORDERED: AZITHROMYCIN INJ 500 MG VIAL IV PRN (22:21)
[2018-06-23] MEDS ORDERED: CHLORPHENIRAMINE MALEATE 4 MG TABLET PO ONE (22:30)
[2018-06-23] MEDS ORDERED: LACTULOSE SYRUP 20 GM/30 ML UDCUP PO ONE (22:30)
[2018-06-23] MEDS ORDERED: ATORVASTATIN CALCIUM 20 MG TABLET PO ONE (22:30)
[2018-06-23] MEDS ORDERED: AZITHROMYCIN 500 MG in DEXTROSE 5%-WATER 250 ML IV ONE (23:00)
[2018-06-24] MEDS: IPRATROPIUM/ALBUTEROL 0.5-2.5 MG/3 ML AMPUL NEB SCH ×3 (00:17→16:36)
[2018-06-24] MEDS: HEPARIN SOD (PORCINE) 5,000 UNIT/ML 1 ML SYRINGE SUBCUT SCH ×3 (06:09→22:02)
[2018-06-24] MEDS: LEVOTHYROXINE SODIUM 0.1 MG TABLET PO SCH (06:09)
[2018-06-24] MEDS ORDERED: CHLORPHENIRAMINE MALEATE 4 MG TABLET ONE (06:12)
[2018-06-24 06:22] LABS: ABSOLUTE LYMPHOCYTES (AUTO) 0.5 10^3/uL (0.5-4.7); ABSOLUTE MONOCYTES (AUTO) 0.1 10^3/uL (0.1-1.4); BASOPHILS % (AUTO) 0.2 % (0-2); HEMATOCRIT 40.3 % (36.0-47.0); HEMOGLOBIN 13.6 g/dL (12.0-15.5); MEAN CORPUSCULAR HEMOGLOBIN 31.1 pg (27.0-33.4); MEAN CORPUSCULAR HGB CONC 33.9 g/dL (32.0-36.0); MEAN CORPUSCULAR VOLUME 92 fl (80-97); MONOCYTES % (AUTO) 1.6 % (3-13); PLATELET COUNT 215 10^3/uL (150-450); RED BLOOD COUNT 4.38 10^6/uL (3.72-5.28); RED CELL DISTRIBUTION WIDTH 13.2 % (11.5-14.0); SEGMENTED NEUTROPHILS % (AUTO) 92.2 % (42-78); TOTAL CELLS COUNTED % (AUTO) 100 %; WHITE BLOOD COUNT 8.7 10^3/uL (4.0-10.5)
[2018-06-24] MEDS: CHLORPHENIRAMINE MALEATE 4 MG TABLET PO SCH ×3 (06:38→22:02)
[2018-06-24 06:39] LABS: ANION GAP 12 (5-19); BLOOD UREA NITROGEN 19 mg/dL (7-20); CALCIUM 10.8 mg/dL (8.4-10.2); CARBON DIOXIDE 26 mmol/L (22-30); CHLORIDE 102 mmol/L (98-107); GLUCOSE 189 mg/dL (75-110); POTASSIUM 4.6 mmol/L (3.6-5.0); SODIUM 139.6 mmol/L (137-145)
--- NOTE | 2018-06-24 07:43 | EKG REPORT ---
SEVERITY:- OTHERWISE NORMAL ECG - SINUS TACHYCARDIA : Confirmed by: Osvaldo Neal MD 24-Jun-2018 07:42:33
[2018-06-24] MEDS: METOPROLOL TARTRATE 50 MG TABLET PO SCH (09:48)
[2018-06-24] MEDS: ASPIRIN 81 MG TABLET, ENT COATED PO SCH (09:48)
[2018-06-24] MEDS: FLUTICASONE NASAL SPRAY 50 MCG/SPRY 120 SPRAY/16 GM NASL SCH ×2 (09:49→22:01)
[2018-06-24] MEDS: PSYLLIUM SEED-SF 5.85 GM PACKET PO SCH (09:50)
--- NOTE | 2018-06-24 12:18 | PDOC PROGRESS REPORT ---
Subjective Progress Note for:: 06/24/18 Subjective:: This is a very pleasant but unfortunate 52 years old female patient brought by EMS with chief complaint of shortness of breath. Patient has underlying COPD, hypertension, hyperlipidemia, rheumatoid arthritis, obstructive sleep apnea and super morbid obesity. Patient is being treated accordingly. This morning I seen patient lying flat and she is on CPAP with full mask. She reported some improvement in her condition. Reason For Visit: ACUTE BRONCHITIS,LUKE,MORBID OBESITY,HYPERCALCEMIA Physical Exam Vital Signs: Temp Pulse Resp BP Pulse Ox 97.6 F 79 19 135/79 H 96 06/24/18 08:12 06/24/18 08:12 06/24/18 08:12 06/24/18 08:12 06/24/18 08:12 Intake & Output 06/23/18 06/24/18 06/25/18 06:59 06:59 06:59 Intake Total 800 Balance 800 Weight 163.3 kg General appearance: PRESENT: mild distress Eye exam: PRESENT: conjunctiva pink Neck exam: ABSENT: carotid bruit, JVD, lymphadenopathy, thyromegaly Respiratory exam: PRESENT: crackles, rhonchi, wheezes Cardiovascular exam: PRESENT: RRR. ABSENT: diastolic murmur, rubs, systolic murmur GI/Abdominal exam: PRESENT: other - Morbidly obese abdomen Musculoskeletal exam: PRESENT: other - Upper extremity deformity Results Laboratory Results: 06/24/18 05:18 06/24/18 05:18 06/23/18 06/23/18 06/23/18 18:14 18:14 18:50 WBC 12.2 H RBC 4.94 Hgb 15.3 Hct 45.1 MCV 91 MCH 30.9 MCHC 33.8 RDW 13.5 Plt Count 311 Seg Neutrophils % 77.0 Lymphocytes % 14.0 Monocytes % 7.4 Eosinophils % 1.2 Basophils % 0.4 Absolute Neutrophils 9.4 H Absolute Lymphocytes 1.7 Absolute Monocytes 0.9 Absolute Eosinophils 0.2 Absolute Basophils 0.0 Sodium Cancelled 139.5 Potassium Cancelled 4.2 Chloride Cancelled 100 Carbon Dioxide Cancelled 31 H Anion Gap Cancelled 9 BUN Cancelled 22 H Creatinine Cancelled 0.74 Est GFR ( Amer) Cancelled > 60 Est GFR (Non-Af Amer) Cancelled > 60 Glucose Cancelled 113 H Calcium Cancelled 11.4 H TSH 06/23/18 06/24/18 06/24/18 18:50 05:18 05:18 WBC 8.7 RBC 4.38 Hgb 13.6 Hct 40.3 MCV 92 MCH 31.1 MCHC 33.9 RDW 13.2 Plt Count 215 Seg Neutrophils % 92.2 H Lymphocytes % 6.0 L Monocytes % 1.6 L Eosinophils % 0.0 Basophils % 0.2 Absolute Neutrophils 8.0 Absolute Lymphocytes 0.5 Absolute Monocytes 0.1 Absolute Eosinophils 0.0 Absolute Basophils 0.0 Sodium 139.6 Potassium 4.6 Chloride 102 Carbon Dioxide 26 Anion Gap 12 BUN 19 Creatinine 0.59 Est GFR ( Amer) > 60 Est GFR (Non-Af Amer) > 60 Glucose 189 H Calcium 10.8 H TSH 3.83 06/23/18 06/23/18 18:14 18:50 Troponin I Cancelled < 0.012 Impressions: Chest X-Ray 06/23/18 17:44 IMPRESSION: Persistent right upper lobe mass seen on prior CT. Possible right hilar mass No acute Findings Assessment & Plan - Diagnosis (1) Acute and chronic respiratory failure Is this a current diagnosis for this admission?: Yes Plan: Continue current regimen (2) Diabetes 1.5, managed as type 2 Is this a current diagnosis for this admission?: Yes (3) COPD exacerbation Is this a current diagnosis for this admission?: Yes Plan: Continue current regimen (4) Hypertension Is this a current diagnosis for this admission?: Yes Plan: Continue current treatment (5) Morbid obesity with BMI of 50.0-59.9, adult Is this a current diagnosis for this admission?: Yes Plan: Lifestyle modification advised. (6) Rheumatoid arthritis Qualifiers: Rheumatoid arthritis location: multiple sites Is this a current diagnosis for this admission?: Yes Plan: In remission
[2018-06-24] MEDS: CEFTRIAXONE SODIUM 1,000 MG in DEXTROSE 5%-WATER 50 ML IV SCH (17:54)
[2018-06-24] MEDS ORDERED: CEFTRIAXONE 1 GM/D5W RTU 1 GM/50 ML RTUPB IV SCH (18:00)
[2018-06-24] MEDS: ATORVASTATIN CALCIUM 20 MG TABLET PO SCH (22:02)
[2018-06-24] MEDS: AZITHROMYCIN 500 MG in DEXTROSE 5%-WATER 250 ML IV SCH (22:05)
[2018-06-25] MEDS: IPRATROPIUM/ALBUTEROL 0.5-2.5 MG/3 ML AMPUL NEB SCH ×4 (00:16→23:50)
[2018-06-25] MEDS: HEPARIN SOD (PORCINE) 5,000 UNIT/ML 1 ML SYRINGE SUBCUT SCH ×3 (05:44→22:47)
[2018-06-25] MEDS: CHLORPHENIRAMINE MALEATE 4 MG TABLET PO SCH ×3 (05:44→22:47)
[2018-06-25] MEDS: LEVOTHYROXINE SODIUM 0.1 MG TABLET PO SCH (05:44)
[2018-06-25] MEDS: METOPROLOL TARTRATE 50 MG TABLET PO SCH (09:29)
[2018-06-25] MEDS: FLUTICASONE NASAL SPRAY 50 MCG/SPRY 120 SPRAY/16 GM NASL SCH ×2 (09:29→22:47)
[2018-06-25] MEDS: ASPIRIN 81 MG TABLET, ENT COATED PO SCH (09:30)
[2018-06-25] MEDS: PSYLLIUM SEED-SF 5.85 GM PACKET PO SCH (09:30)
[2018-06-25] MEDS: NYSTATIN TOPICAL POWDER 15 GM TP SCH ×2 (12:48→22:47)
--- NOTE | 2018-06-25 14:02 | PDOC PROGRESS REPORT ---
Subjective Progress Note for:: 06/25/18 Subjective:: I seen patient resting in bed. She is complaining of cough and shortness of breath. Otherwise patient is doing relatively better. Reason For Visit: BRONCHITIS,LUKE,MORBID OBESITY Physical Exam Vital Signs: Temp Pulse Resp BP Pulse Ox 98.2 F 62 21 H 119/65 96 06/25/18 11:22 06/25/18 11:22 06/25/18 11:22 06/25/18 11:22 06/25/18 11:22 Intake & Output 06/24/18 06/25/18 06/26/18 06:59 06:59 06:59 Intake Total 800 1318 Output Total 1445 Balance 800 -127 Weight 163.3 kg 165.5 kg General appearance: PRESENT: mild distress Eye exam: PRESENT: conjunctiva pink Mouth exam: PRESENT: moist Respiratory exam: PRESENT: wheezes Cardiovascular exam: PRESENT: RRR. ABSENT: diastolic murmur, rubs, systolic murmur GI/Abdominal exam: PRESENT: normal bowel sounds, soft. ABSENT: distended, guarding, mass, organolmegaly, rebound, tenderness Extremities exam: PRESENT: other - Contracted and deformed hands Neurological exam: PRESENT: alert, awake, oriented to time, oriented to situation Psychiatric exam: PRESENT: normal mood Results Laboratory Results: 06/24/18 05:18 06/24/18 05:18 06/23/18 06/23/18 18:14 18:50 Troponin I Cancelled < 0.012 Impressions: Chest X-Ray 06/23/18 17:44 IMPRESSION: Persistent right upper lobe mass seen on prior CT. Possible right hilar mass No acute Findings Assessment & Plan - Diagnosis (1) Acute and chronic respiratory failure Is this a current diagnosis for this admission?: Yes Plan: Continue current regimen (2) Diabetes 1.5, managed as type 2 Is this a current diagnosis for this admission?: Yes Plan: Continue sliding scale (3) COPD exacerbation Is this a current diagnosis for this admission?: Yes Plan: Continue current regimen (4) Hypertension Is this a current diagnosis for this admission?: Yes Plan: Continue current treatment (5) Morbid obesity with BMI of 50.0-59.9, adult Is this a current diagnosis for this admission?: Yes Plan: Lifestyle modification advised. (6) Rheumatoid arthritis Qualifiers: Rheumatoid arthritis location: multiple sites Is this a current diagnosis for this admission?: Yes Plan: In remission
[2018-06-25] MEDS: CEFTRIAXONE SODIUM 1,000 MG in DEXTROSE 5%-WATER 50 ML IV SCH (17:51)
[2018-06-25] MEDS: ATORVASTATIN CALCIUM 20 MG TABLET PO SCH (22:47)
[2018-06-25] MEDS: AZITHROMYCIN 500 MG in DEXTROSE 5%-WATER 250 ML IV SCH (22:47)
[2018-06-26] MEDS: LEVOTHYROXINE SODIUM 0.1 MG TABLET PO SCH (05:49)
[2018-06-26] MEDS: CHLORPHENIRAMINE MALEATE 4 MG TABLET PO SCH ×3 (05:49→21:13)
[2018-06-26] MEDS: HEPARIN SOD (PORCINE) 5,000 UNIT/ML 1 ML SYRINGE SUBCUT SCH ×3 (05:51→21:11)
[2018-06-26] MEDS: IPRATROPIUM/ALBUTEROL 0.5-2.5 MG/3 ML AMPUL NEB SCH ×2 (09:27→16:31)
[2018-06-26] MEDS: NYSTATIN TOPICAL POWDER 15 GM TP SCH ×2 (10:05→21:12)
[2018-06-26] MEDS: METOPROLOL TARTRATE 50 MG TABLET PO SCH (10:05)
[2018-06-26] MEDS: ASPIRIN 81 MG TABLET, ENT COATED PO SCH (10:05)
[2018-06-26] MEDS: FLUTICASONE NASAL SPRAY 50 MCG/SPRY 120 SPRAY/16 GM NASL SCH ×2 (10:05→21:14)
[2018-06-26] MEDS: PSYLLIUM SEED-SF 5.85 GM PACKET PO SCH (10:05)
[2018-06-26] MEDS: METHYLPREDNISOLONE INJ 40 MG/1 ML SDV IV SCH ×2 (10:10→14:43)
--- NOTE | 2018-06-26 16:15 | PDOC PROGRESS REPORT ---
Subjective Subjective:: Patient seen and examined at bedside. He is awake alert and oriented. Her breathing is improving. Her A1c is 5.5 which reflect this at her diabetes is well controlled. If she remains stable she is potential discharge for tomorrow. Reason For Visit: BRONCHITIS,LUKE,MORBID OBESITY Physical Exam Vital Signs: Temp Pulse Resp BP Pulse Ox 97.8 F 70 21 H 134/66 H 95 06/26/18 12:00 06/26/18 12:00 06/26/18 12:00 06/26/18 12:00 06/26/18 12:00 Intake & Output 06/25/18 06/26/18 06/27/18 06:59 06:59 06:59 Intake Total 1318 1545 Output Total 1445 900 Balance -127 645 Weight 165.5 kg 166 kg General appearance: PRESENT: no acute distress Head exam: PRESENT: atraumatic Eye exam: PRESENT: conjunctiva pink Mouth exam: PRESENT: moist Neck exam: ABSENT: carotid bruit, JVD, lymphadenopathy, thyromegaly Respiratory exam: PRESENT: clear to auscultation yung. ABSENT: rales, rhonchi, wheezes Cardiovascular exam: PRESENT: RRR. ABSENT: diastolic murmur, rubs, systolic murmur GI/Abdominal exam: PRESENT: normal bowel sounds, soft. ABSENT: distended, guarding, mass, organolmegaly, rebound, tenderness Neurological exam: PRESENT: alert, awake, oriented to time, oriented to situation Results Laboratory Results: 06/24/18 05:18 06/24/18 05:18 06/23/18 06/23/18 18:14 18:50 Troponin I Cancelled < 0.012 Impressions: Chest X-Ray 06/23/18 17:44 IMPRESSION: Persistent right upper lobe mass seen on prior CT. Possible right hilar mass No acute Findings Assessment & Plan - Diagnosis (1) Acute and chronic respiratory failure Is this a current diagnosis for this admission?: Yes Plan: Continue current regimen (2) Diabetes 1.5, managed as type 2 Is this a current diagnosis for this admission?: Yes Plan: Continue sliding scale (3) COPD exacerbation Is this a current diagnosis for this admission?: Yes Plan: Continue current regimen (4) Hypertension Is this a current diagnosis for this admission?: Yes Plan: Continue current treatment (5) Morbid obesity with BMI of 50.0-59.9, adult Is this a current diagnosis for this admission?: Yes Plan: Lifestyle modification advised. (6) Rheumatoid arthritis Qualifiers: Rheumatoid arthritis location: multiple sites Is this a current diagnosis for this admission?: Yes Plan: In remission
[2018-06-26] MEDS: CEFTRIAXONE SODIUM 1,000 MG in DEXTROSE 5%-WATER 50 ML IV SCH (17:45)
[2018-06-26] MEDS: AZITHROMYCIN 500 MG in DEXTROSE 5%-WATER 250 ML IV SCH (21:12)
[2018-06-26] MEDS: ATORVASTATIN CALCIUM 20 MG TABLET PO SCH (21:13)
[2018-06-27] MEDS: IPRATROPIUM/ALBUTEROL 0.5-2.5 MG/3 ML AMPUL NEB SCH ×3 (00:25→15:54)
[2018-06-27] MEDS: HEPARIN SOD (PORCINE) 5,000 UNIT/ML 1 ML SYRINGE SUBCUT SCH ×2 (06:09→13:45)
[2018-06-27] MEDS: CHLORPHENIRAMINE MALEATE 4 MG TABLET PO SCH ×2 (06:09→15:22)
[2018-06-27] MEDS: LEVOTHYROXINE SODIUM 0.1 MG TABLET PO SCH (06:09)
[2018-06-27 07:04] LABS: ARTERIAL BLOOD BASE EXCESS 3.8 mmol/L; ARTERIAL BLOOD H2CO3 1.42 mmol/L (1.05-1.35); ARTERIAL BLOOD HCO3 29.2 mmol/L (20-24); ARTERIAL BLOOD O2 SATURATION 99.5 % (94-98); ARTERIAL BLOOD PCO2 47.2 mmHg (35-45); ARTERIAL BLOOD PH 7.41 (7.35-7.45); ARTERIAL BLOOD PO2 241.7 mmHg (80-100); ARTERIAL BLOOD TOTAL CO2 30.7 mmol/L (21-25)
[2018-06-27 07:10] LABS: ARTERIAL BLOOD FIO2 30%
[2018-06-27] MEDS ORDERED: PREDNISONE 20 MG TABLET PO SCH (10:00)
[2018-06-27] MEDS: ASPIRIN 81 MG TABLET, ENT COATED PO SCH (10:19)
[2018-06-27] MEDS: METOPROLOL TARTRATE 50 MG TABLET PO SCH (10:19)
[2018-06-27] MEDS: FLUTICASONE NASAL SPRAY 50 MCG/SPRY 120 SPRAY/16 GM NASL SCH (10:21)
--- NOTE | 2018-06-27 10:23 | PDOC DISCHARGE SUMMARY ---
General - Admit/Disc Date/PCP Admission Date/Primary Care Provider: 06/25/18 11:30 TACOS TOBIN NP Discharge Date: 06/27/18 - Discharge Diagnosis (1) Acute and chronic respiratory failure Is this a current diagnosis for this admission?: Yes (2) Diabetes 1.5, managed as type 2 Is this a current diagnosis for this admission?: Yes (3) COPD exacerbation Is this a current diagnosis for this admission?: Yes (4) Hypertension Is this a current diagnosis for this admission?: Yes (5) Morbid obesity with BMI of 50.0-59.9, adult Is this a current diagnosis for this admission?: Yes (6) Rheumatoid arthritis Is this a current diagnosis for this admission?: Yes - Additional Information Resuscitation Status: Full Code Home Medications: Albuterol Sulfate [Proair Respiclick] 2 puff IH Q4HP PRN 06/24/18 Amlodipine Besylate [Norvasc 5 mg Tablet] 5 mg PO DAILY 06/24/18 Aspirin [Aspirin 81 mg Chewable Tablet] 81 mg PO DAILY 06/24/18 Atorvastatin Calcium [Lipitor 40 mg Tablet] 40 mg PO DAILY 06/24/18 Calcium Carbonate/Vitamin D3 [Calcium 500 + Vit D Caplet] 2 each PO DAILY 06/24/18 Levothyroxine Sodium [Synthroid 0.025 mg Tablet] 0.025 mg PO DAILY@0600 06/24/18 Levothyroxine Sodium [Synthroid] 200 mcg PO DAILY@0600 06/24/18 Metformin HCl [Glucophage 500 mg Tablet] 500 mg PO Q12 06/24/18 Metoprolol Tartrate [Lopressor 50 mg Tablet] 50 mg PO DAILY 06/24/18 Umeclidinium Brm/Vilanterol Tr [Anoro Ellipta 62.5-25 Mcg INH] 1 each IH DAILY 06/24/18 History of Present Illness History of Present Illness: WOODROW RUSSELL is a 52 year old female with a past medical history of morbid obesity with a BMI of 77, obstructive sleep apnea, morbid obesity hypoventilation syndrome, oxygen dependent COPD, chronic bronchitis, rheumatoid arthritis, type 2 diabetes and profound physical debility. Patient presents with 4 days of shortness of breath and productive cough of yellow sputum, rhinorrhea and postnasal drip. In the emergency room she is found to have hypoxia of 88% on room air fever, leukocytosis but an unremarkable chest x-ray. Prompting empiric antibiotics, supplemental oxygen and referral to hospitalist for admission. Hospital Course Hospital Course: This is a very pleasant but unfortunate 52 years old female patient brought by EMS with chief complaint of shortness of breath. Patient has underlying COPD, hypertension, hyperlipidemia, rheumatoid arthritis, obstructive sleep apnea and super morbid obesity. Patient is being treated accordingly with Zithromax and ceftriaxone, Solu-Medrol, DuoNeb and CPAP for her obstructive sleep apnea. Her other comorbid conditions also treated accordingly. Surprisingly, her diabetes is well controlled with hemoglobin A1c of 5.5 despite being super morbid obese. Patient counseled to do lifestyle modification. This morning I seen patient lying flat and she is on CPAP with full mask. Currently patient is at her baseline. I will discharge her home with prednisone 40 mg p.o. daily for 5 days and Zithromax 500 mg p.o. daily for 5 days. Patient advised to follow-up with her primary care physician. Physical Exam Vital Signs: Temp Pulse Resp BP Pulse Ox 97.7 F 79 22 H 140/72 H 99 06/27/18 07:14 06/27/18 09:03 06/27/18 09:03 06/27/18 07:14 06/27/18 09:03 Intake & Output 06/26/18 06/27/18 06/28/18 06:59 06:59 06:59 Intake Total 1545 2170 Output Total 900 Balance 645 2170 Weight 166 kg 167.9 kg General appearance: PRESENT: mild distress Head exam: PRESENT: atraumatic Eye exam: PRESENT: conjunctiva pink Mouth exam: PRESENT: moist Neck exam: ABSENT: carotid bruit, JVD, lymphadenopathy, thyromegaly Respiratory exam: PRESENT: wheezes - Occasional bilateral Cardiovascular exam: PRESENT: RRR. ABSENT: diastolic murmur, rubs, systolic murmur GI/Abdominal exam: PRESENT: normal bowel sounds, soft. ABSENT: distended, guarding, mass, organolmegaly, rebound, tenderness Neurological exam: PRESENT: alert, awake, oriented to time, oriented to situation Results Laboratory Results: 06/24/18 05:18 06/24/18 05:18 06/27/18 06:48 Carbonic Acid 1.42 H HCO3/H2CO3 Ratio 20:1 ABG pH 7.41 ABG pCO2 47.2 H ABG pO2 241.7 H ABG HCO3 29.2 H ABG O2 Saturation 99.5 H ABG Base Excess 3.8 FiO2 30% 06/23/18 06/23/18 18:14 18:50 Troponin I Cancelled < 0.012 Impressions: Chest X-Ray 06/23/18 17:44 IMPRESSION: Persistent right upper lobe mass seen on prior CT. Possible right hilar mass No acute Findings Qualifiers - * PATIENT BEING DISCHARGED WITH ANY OF THE FOLLOWING DIAGNOSIS: No
[2018-06-27] MEDS: PSYLLIUM SEED-SF 5.85 GM PACKET PO SCH (10:24)
[2018-06-27] MEDS: NYSTATIN TOPICAL POWDER 15 GM TP SCH (10:25)
[2018-06-27 16:02] VITALS: BP 139/83
== END 2018-06-27 17:48 | disposition home or self-care (01) | DRG 190 ==
LOC: ER 17:15 → INTOOBSV 21:54 → EH 21:54 → 4W 23:22 → OBSVTOIN 06-25 11:30 → 4S 06-25 17:54
PROVIDERS: ADMIT Internal Medicine; ATTEND Internal Medicine
PROC: 5A09457 Assistance with Respiratory Ventilation, 24-96 Consecutive Hours, Continuous Positive Airway Pressure (ICD-10-PCS; principal; 2018-06-24)
DX: J44.1 Chronic obstructive pulmonary disease with (acute) exacerbation (principal); J96.20 Acute and chronic respiratory failure, unspecified whether with hypoxia or hypercapnia; Z68.45 Body mass index [BMI] 70 or greater, adult; E66.2 Morbid (severe) obesity with alveolar hypoventilation; Z99.2 Dependence on renal dialysis; M06.9 Rheumatoid arthritis, unspecified; E11.9 Type 2 diabetes mellitus without complications; E78.5 Hyperlipidemia, unspecified; I10 Essential (primary) hypertension; Z88.0 Allergy status to penicillin; E83.52 Hypercalcemia; Z79.4 Long term (current) use of insulin; Z87.891 Personal history of nicotine dependence
CPT/HCPCS: 36415; 36600; 71045; 80048; 82803; 82962; 83036; 84443; 84484; 85025; 87040; 93005; 93010; 94640; 94660; 94667; 94668; 94799; 96361; 96374; 99291; G0378; J0456; J0696; J1644; J1815; J2920; J2930; J3490; J7040; J7060; J7512; J7620

== ENCOUNTER 2018-11-08 11:04 | Emergency (ER) | payer MEDICARE, MEDICAID ==
[2018-11-08] MEDS ORDERED: KETOROLAC TROMETHAMINE 60 MG/2 ML SDV IM ONE (12:29)
--- NOTE | 2018-11-08 12:31 | ER Document Report ---
ED Medical Screen (RME) - General Chief Complaint: Hip Pain Stated Complaint: HIP PAIN Time Seen by Provider: 11/08/18 12:06 Primary Care Provider: TACOS TOBIN NP [Primary Care Provider] - Follow up as needed Mode of Arrival: Wheelchair Information source: Patient Notes: Patient is a 53-year-old female presenting to the emergency department with complaints of hip pain. Patient denies any injury but states that approximately 3 to 4 weeks ago she started having severe pain in her left hip area on the posterior and lateral side. She states that the pain radiates down her leg into the back of her calf. She states that she has had associated fever and chills. Patient denies any history of DVTs or PEs. Exam: Patient alert, oriented and answering all questions appropriately. Lung sounds clear and equal bilaterally. Tenderness to palpation to left posterior buttock and left lateral hip area. No erythema or ecchymosis noted. I have greeted and performed a rapid initial assessment of this patient. A comprehensive ED assessment and evaluation of the patient, analysis of test results and completion of the medical decision making process will be conducted by additional ED providers. Dictation of this chart was performed using voice recognition software; therefore, there may be some unintended grammatical errors. TRAVEL OUTSIDE OF THE [place] IN LAST 30 DAYS: No - Related Data Allergies/Adverse Reactions: Penicillins Allergy (Verified 11/08/18 11:11) Past Medical History - Social History Frequency of alcohol use: None Drug Abuse: None - Past Medical History Cardiac Medical History: Reports: Hx Hypercholesterolemia, Hx Hypertension Pulmonary Medical History: Reports: Hx COPD, Hx Pneumonia, Hx Sleep Apnea Endocrine Medical History: Reports: Hx Diabetes Mellitus Type 2 Renal/ Medical History: Denies: Hx Peritoneal Dialysis Musculoskeltal Medical History: Reports Hx Arthritis - rheumatoid arthritis Psychiatric Medical History: Denies: Hx Depression Past Surgical History: Reports: Hx Abdominal Surgery - hernia repair, Hx Orthopedic Surgery - right hand, great toe, Hx Thyroid Surgery - hypo, Hx Urinary Tract Surgery - bladder tacComment Only: Hx Tonsillectomy - adenoids - Immunizations History of Influenza Vaccine for 04/2017 - 09/2017 Season: Yes Influenza Administration Date for 04/2017 - 09/2017 Season: 06/05/18 Physical Exam - Vital signs Vitals: Temp Pulse Resp BP Pulse Ox 98.0 F 87 18 147/93 H 93 11/08/18 11:14 11/08/18 11:14 11/08/18 11:14 11/08/18 11:14 11/08/18 11:14 Course - Vital Signs Vital signs: Temp Pulse Resp BP Pulse Ox 98.0 F 87 18 147/93 H 93 11/08/18 11:14 11/08/18 11:14 11/08/18 11:14 11/08/18 11:14 11/08/18 11:14 Doctor's Discharge - Discharge Referrals: TACOS TOBIN [employer]AM[employer]UTTER MACHINE [Primary Care Provider] - Follow up as needed
[2018-11-08 12:53] LABS: ABSOLUTE EOSINOPHILS # (AUTO) 0.2 10^3/uL (0.0-0.6); ABSOLUTE LYMPHOCYTES (AUTO) 1.2 10^3/uL (0.5-4.7); ABSOLUTE MONOCYTES (AUTO) 0.9 10^3/uL (0.1-1.4); ABSOLUTE NEUT (AUTO) 7.2 10^3/uL (1.7-8.2); BASOPHILS % (AUTO) 0.3 % (0-2); EOSINOPHILS % (AUTO) 1.7 % (0-6); HEMATOCRIT 43.4 % (36.0-47.0); HEMOGLOBIN 14.4 g/dL (12.0-15.5); LYMPHOCYTES % (AUTO) 12.5 % (13-45); MEAN CORPUSCULAR HGB CONC 33.3 g/dL (32.0-36.0); MEAN CORPUSCULAR VOLUME 90 fl (80-97); MONOCYTES % (AUTO) 9.3 % (3-13); PLATELET COUNT 289 10^3/uL (150-450); RED BLOOD COUNT 4.81 10^6/uL (3.72-5.28); RED CELL DISTRIBUTION WIDTH 14.7 % (11.5-14.0); SEGMENTED NEUTROPHILS % (AUTO) 76.2 % (42-78); TOTAL CELLS COUNTED % (AUTO) 100 %; WHITE BLOOD COUNT 9.4 10^3/uL (4.0-10.5)
[2018-11-08 13:10] LABS: ALANINE AMINOTRANSFERASE 50 U/L (9-52); ALBUMIN 4.5 g/dL (3.5-5.0); ALKALINE PHOSPHATASE 91 U/L (38-126); ANION GAP 13 (5-19); ASPARTATE AMINO TRANSFERASE 31 U/L (14-36); BILIRUBIN,DIRECT 0.2 mg/dL (0.0-0.4); BILIRUBIN,TOTAL 0.8 mg/dL (0.2-1.3); BLOOD UREA NITROGEN 21 mg/dL (7-20); CALCIUM 10.9 mg/dL (8.4-10.2); CARBON DIOXIDE 27 mmol/L (22-30); CHLORIDE 103 mmol/L (98-107); GLUCOSE 110 mg/dL (75-110); POTASSIUM 4.3 mmol/L (3.6-5.0); SODIUM 143.4 mmol/L (137-145); TOTAL PROTEIN 7.6 g/dL (6.3-8.2)
--- NOTE | 2018-11-08 13:26 | RADIOLOGY REPORT (SQ) ---
EXAM DESCRIPTION: HIP LEFT AP/LATERAL COMPLETED DATE/TIME: 11/08/2018 12:58 pm REASON FOR STUDY: left hip pain, no injury COMPARISON: None. NUMBER OF VIEWS: Two views. TECHNIQUE: AP pelvis and additional frog-leg view of the left hip. LIMITATIONS: Body habitus. Positioning. FINDINGS: MINERALIZATION: Normal. LEFT HIP: No fracture or dislocation. No worrisome bone lesions. RIGHT HIP: No fracture or dislocation. No worrisome bone lesions. PUBIS AND ISCHIUM: No fracture. PELVIS: No fracture. SACRUM: No fracture or dislocation. No worrisome bone lesions. LOWER LUMBAR SPINE: Facet arthropathy. SOFT TISSUES: No findings. OTHER: No other significant finding. IMPRESSION: No acute findings in the left hip. TECHNICAL DOCUMENTATION: JOB ID: [id number] [employer]- All Rights Reserved Reading location - IP/workstation name: [email or web address]
--- NOTE | 2018-11-08 15:09 | ER Document Report ---
ED General - General Chief Complaint: Hip Pain Stated Complaint: HIP PAIN Time Seen by Provider: 11/08/18 12:06 Primary Care Provider: TACOS TOBIN NP [Primary Care Provider] - Follow up as needed Mode of Arrival: Wheelchair Information source: Patient, [facility] Records Notes: 53-year-old female with hypertension, hyperlipidemia, COPD on continuous oxygen, type 2 diabetes, rheumatoid arthritis with chronic back and hip pain presents with left hip pain that has been ongoing for several weeks with worsening of pain over the last 2 weeks. Patient denies any recent falls, history of PE, DVT. She is currently under the care of rheumatology and has been started on a new pain medication. Patient states that she was seen at [facility] and was given a pain injection and discharged home. Patient does have an upcoming appointment with her crown perforator operator on December 03, 2018. TRAVEL OUTSIDE OF THE [place] IN LAST 30 DAYS: No - HPI Onset: Other Onset/Duration: Persistent, Worse Quality of pain: Throbbing Severity: Moderate Associated symptoms: Leg swelling. denies: Chest pain, Fever, Headache, Nausea, Vomiting, Shortness of breath Exacerbated by: Movement, Walking Relieved by: Denies Similar symptoms previously: Yes Recently seen / treated by doctor: Yes - Related Data Allergies/Adverse Reactions: Penicillins Allergy (Verified 11/08/18 11:11) Past Medical History - General Information source: Patient - Social History Smoking Status: Former Smoker Frequency of alcohol use: None Drug Abuse: None Lives with: Spouse/Significant other Family History: Reviewed & Not Pertinent Patient has suicidal ideation: No Patient has homicidal ideation: No - Past Medical History Cardiac Medical History: Reports: Hx Hypercholesterolemia, Hx Hypertension Pulmonary Medical History: Reports: Hx COPD, Hx Pneumonia, Hx Sleep Apnea Endocrine Medical History: Reports: Hx Diabetes Mellitus Type 2 Renal/ Medical History: Denies: Hx Peritoneal Dialysis Musculoskeletal Medical History: Reports Hx Arthritis - rheumatoid arthritis Psychiatric Medical History: Denies: Hx Depression Past Surgical History: Reports: Hx Abdominal Surgery - hernia repair, Hx Orthopedic Surgery - right hand, great toe, Hx Thyroid Surgery - hypo, Hx Urinary Tract Surgery - bladder tacComment Only: Hx Tonsillectomy - adenoids Review of Systems - Review of Systems Constitutional: denies: Fever, Weakness, Recent illness EENT: denies: Difficulty swallowing Cardiovascular: denies: Chest pain, Palpitations, Dizziness, Lightheaded Respiratory: denies: Cough, Hurts to breathe, Short of breath Gastrointestinal: denies: Abdominal pain Genitourinary: denies: Flank pain Female Genitourinary: No symptoms reported Musculoskeletal: Back pain, Joint pain, Leg swelling Skin: Lesions - [place] left great toe Neurological/Psychological: denies: Confusion, Headaches -: Yes All other systems reviewed and negative Physical Exam - Vital signs Vitals: Temp Pulse Resp BP Pulse Ox 98.0 F 87 18 147/93 H 93 11/08/18 11:14 11/08/18 11:14 11/08/18 11:14 11/08/18 11:14 11/08/18 11:14 - Notes Notes: PHYSICAL EXAMINATION: GENERAL: Morbid obesity, no acute distress. HEAD: Atraumatic, normocephalic. EYES: Pupils equal round and reactive to light, extraocular movements intact, conjunctiva are normal. ENT: Nares patent, oropharynx clear without exudates. Moist mucous membranes. NECK: Normal range of motion, supple without lymphadenopathy LUNGS: Breath sounds clear to auscultation bilaterally and equal. No wheezes rales or rhonchi. HEART: Regular rate and rhythm without murmurs ABDOMEN: Soft, nontender, nondistended abdomen. No guarding, no rebound. No masses appreciated. Female : deferred Musculoskeletal: Normal range of motion, no pitting or edema. No cyanosis. NEUROLOGICAL: Cranial nerves grossly intact. Normal speech, Normal sensory, motor exams PSYCH: Normal mood, normal affect. SKIN: Large callus on the left great toe. No associated erythema. Course - Re-evaluation Re-evalutation: 11/08/18 21:28 Laboratory 11/08/18 11/08/18 12:42 12:42 WBC 9.4 RBC 4.81 Hgb 14.4 Hct 43.4 MCV 90 MCH 30.0 MCHC 33.3 RDW 14.7 H Plt Count 289 Seg Neutrophils % 76.2 Lymphocytes % 12.5 L Monocytes % 9.3 Eosinophils % 1.7 Basophils % 0.3 Absolute Neutrophils 7.2 Absolute Lymphocytes 1.2 Absolute Monocytes 0.9 Absolute Eosinophils 0.2 Absolute Basophils 0.0 Sodium 143.4 Potassium 4.3 Chloride 103 Carbon Dioxide 27 Anion Gap 13 BUN 21 H Creatinine 0.73 Est GFR ( Amer) > 60 Est GFR (Non-Af Amer) > 60 Glucose 110 Calcium 10.9 H Total Bilirubin 0.8 Direct Bilirubin 0.2 Neonat Total Bilirubin Not Reportable Neonat Direct Bilirubin Not Reportable Neonat Indirect Bili Not Reportable AST 31 ALT 50 Alkaline Phosphatase 91 Total Protein 7.6 Albumin 4.5 Hip X-Ray 11/08/18 12:29 IMPRESSION: No acute findings in the left hip. Temp Pulse Resp BP Pulse Ox 97.7 F 71 18 123/61 99 11/08/18 16:19 11/08/18 16:19 11/08/18 11:14 11/08/18 16:19 11/08/18 16:19 53-year-old female with rheumatoid arthritis, chronic back and hip pain presents with left hip pain that has been ongoing for several months with worsening of pain over the last 2 weeks. States that she has had left lower extremity swelling although I do not appreciate this on exam. Patient did receive 1 mg IM Dilaudid. Venous Doppler of the left lower extremity was obtained and negative for DVT. CBC, CMP unremarkable. Patient advised to follow-up with her crown perforator operator and primary care physician for further chronic pain management. Patient was evaluated and treated as appropriate for the patient's presenting symptoms and complaint, with consideration of any critical or life threatening conditions that may be associated with their obtained history and exam as noted above. All results were discussed with patient . Patient provided the opportunity to ask questions, and express concerns. Patient was educated on treatments based on their presumed diagnosis as noted above. At this time we will discharge the patient with return precautions and follow-up recommendati ons. Verbal discharge instructions given a the bedside. Medication warnings reviewed. Patient is in agreement with this plan and has verbalized understanding of return precautions. After careful consideration I feel that that patient can be safely discharged from the emergency department, they were advised to followup with a primary care physician in 2-3 days. Dictation on this chart was performed using voice recognition software and may result in unintended grammatical, spelling, syntax or errors. - Vital Signs Vital signs: Temp Pulse Resp BP Pulse Ox 97.7 F 71 18 123/61 99 11/08/18 16:19 11/08/18 16:19 11/08/18 11:14 11/08/18 16:19 11/08/18 16:19 - Laboratory Result Diagrams: 11/08/18 12:42 11/08/18 12:42 Laboratory results interpreted by me: 11/08/18 11/08/18 12:42 12:42 RDW 14.7 H Lymphocytes % 12.5 L BUN 21 H Calcium 10.9 H - Diagnostic Test Radiology reviewed: Image reviewed, Reports reviewed Discharge - Discharge Clinical Impression: History of rheumatoid arthritis Chronic hip pain Qualifiers: Laterality: left Qualified Code(s): M25.552 - Pain in left hip Condition: Good Disposition: HOME, SELF-CARE Instructions: Chronic Pain Control ([facility]), Rheumatoid Arthritis ([facility]) Additional Instructions: Please follow-up with your crown perforator operator as already scheduled. Follow up with your [id number] hours for further care or return to the ED IMMEDIATELY if symptoms worsen or you have any concerns. If you cannot afford to follow up with your primary care physician a list of low cost clinics have been provided at the end of your discharge papers as well. Most prescribed medications have multiple side effects. The safest thing to do is when filling your prescription speak to your pharmacist regarding possible interactions with your normal home medications and over the counter medications such as Ibuprofen, Tylenol, Benadryl. If you experience any symptoms that cause you discomfort or concern you should discontinue the medication immediately and return to the emergency room or call your primary care physician. Prescriptions: Hydrocodone/Acetaminophen [[place] 5-325 mg Tablet] 1 tab PO Q8H #8 tablet Referrals: TACOS TOBIN WIRE TESTER [Primary Care Provider] - Follow up as needed
[2018-11-08] MEDS ORDERED: HYDROMORPHONE HCL INJ/PF 2 MG/ML AMPULE IM ONE (15:22)
[2018-11-08 16:32] VITALS: BP 123/61
--- NOTE | 2018-11-08 19:52 | XCELERA REPORT ---
[address] [address] Lower Extremity Venous Evaluation Procedure: Color flow and duplex imaging of the veins of the left lower extremity as well as the right Common Femoral vein. Right Sided Venous Evaluation The right common femoral vein is fully compressible. Spontaneous and phasic flow is present in the right common femoral vein. Left Sided Venous Evaluation Study challenging due to body habitus. 372 lbs, 5 feet tall. Normal vessel filling wall to wall, compression and augmentation as well as Colour flow down to the infrageniculate veins. Interpretation Summary No duplex evidence of DVT or obstruction in the left lower extremity nor in the right Common Femoral vein. Limitations as noted. Name: WOODROW RUSSELL Age: 53 yrs Gender: Female : 1965 Patient Status: Emergency Patient Location: ER Study Date: 11/08/2018 03:21 PM Reason For Study: pain left leg / Hx swelling Ordering Physician: JESSICA CONNORS Performed By: Gina Godinez : JESSICA CONNORS > Carlos Eduardo Helm
== END 2018-11-08 16:20 | disposition home or self-care (01) ==
LOC: ER 11:04
DX: M06.9 Rheumatoid arthritis, unspecified (principal); M25.552 Pain in left hip; M54.9 Dorsalgia, unspecified; G89.29 Other chronic pain; L84 Corns and callosities; I10 Essential (primary) hypertension; J44.9 Chronic obstructive pulmonary disease, unspecified; Z99.81 Dependence on supplemental oxygen; E11.9 Type 2 diabetes mellitus without complications; Z88.0 Allergy status to penicillin; Z87.891 Personal history of nicotine dependence
CPT/HCPCS: 99284; 96372; 96374; 36415; 85025; 80053; 93971 ×2; 73502; J1885; J1170

== ENCOUNTER 2019-04-04 12:49 | Emergency (ER) | payer MEDICARE, MEDICAID ==
[2019-04-04] MEDS ORDERED: ASPIRIN 81 MG TABLET, CHEWABLE PO ONE (14:15)
[2019-04-04] MEDS ORDERED: ACETAMINOPHEN 325 MG TABLET PO ONE (14:16)
--- NOTE | 2019-04-04 14:16 | ER Document Report ---
ED Medical Screen (RME) - General Chief Complaint: Chest Pain Stated Complaint: CHEST PAIN Time Seen by Provider: 04/04/19 14:12 Primary Care Provider: TACOS TOBIN NP [Primary Care Provider] - Follow up as needed TRAVEL OUTSIDE OF THE [place] IN LAST 30 DAYS: No - HPI Notes: 04/04/19 14:16 Patient is a 53-year-old female with a history of morbid obesity, hypertension, type 2 diabetes, COPD (oxygen dependent but did not bring oxygen with her) who presents complaining of right arm pain described as burning there is also contained to her right breast. Patient states that she has had issues with the right arm for the past 3 weeks, but started noticing more pain around the chest area this past week. No history of DVT, PE, GA, CVA. No fever. No recent illness. I have treated and performed a rapid initial assessment of this patient. A comprehensive ED assessment and evaluation of the patient, analysis of test results and completion of medical decision making process will be conducted by additional ED providers. PHYSICAL EXAMINATION: GENERAL: Well-appearing, well-nourished and in no acute distress. A&Ox4. Answers questions appropriately. LUNGS: Diminished bilaterally HEART: Regular rate and rhythm Extremities: Albertina negative bilaterally. No lower extremity asymmetry. Trace pitting edema bilaterally. - Related Data Allergies/Adverse Reactions: Penicillins Allergy (Verified 01/15/19 12:06) Past Medical History - Social History Chew tobacco use (# tins/day): No Frequency of alcohol use: None Drug Abuse: None - Past Medical History Cardiac Medical History: Reports: Hx Hypercholesterolemia, Hx Hypertension Pulmonary Medical History: Reports: Hx COPD, Hx Pneumonia, Hx Sleep Apnea Endocrine Medical History: Reports: Hx Diabetes Mellitus Type 2 Renal/ Medical History: Denies: Hx Peritoneal Dialysis Musculoskeltal Medical History: Reports Hx Arthritis - rheumatoid arthritis Psychiatric Medical History: Denies: Hx Depression Past Surgical History: Reports: Hx Abdominal Surgery - hernia repair, Hx Orthopedic Surgery - right hand, great toe, Hx Thyroid Surgery - hypo, Hx Urinary Tract Surgery - bladder tacComment Only: Hx Tonsillectomy - adenoids - Immunizations History of Influenza Vaccine for 04/2017 - 09/2017 Season: Yes Influenza Administration Date for 04/2017 - 09/2017 Season: 06/05/18 Physical Exam - Vital signs Vitals: Temp Pulse Resp BP Pulse Ox 98.3 F 77 24 H 142/90 H 93 04/04/19 13:06 04/04/19 13:06 04/04/19 13:06 04/04/19 13:06 04/04/19 13:06 Course - Vital Signs Vital signs: Temp Pulse Resp BP Pulse Ox 98.3 F 77 24 H 142/90 H 93 04/04/19 13:06 04/04/19 13:06 04/04/19 13:06 04/04/19 13:06 04/04/19 13:06 Doctor's Discharge - Discharge Referrals: TACOS TOBIN, SPOOL HAULER [Primary Care Provider] - Follow up as needed
--- NOTE | 2019-04-04 15:11 | RADIOLOGY REPORT (SQ) ---
EXAM DESCRIPTION: CHEST SINGLE VIEW COMPLETED DATE/TIME: 04/04/2019 2:45 pm REASON FOR STUDY: CP COMPARISON: PA view of the chest from 06/23/2018. EXAM PARAMETERS: NUMBER OF VIEWS: One view. TECHNIQUE: Single frontal radiographic view of the chest acquired. RADIATION DOSE: NA LIMITATIONS: None. FINDINGS: The cardiomediastinal silhouette and pulmonary vasculature are within normal limits. Ther e is no consolidation, pleural effusion or pneumothorax. There is no acute abnormality of the imaged osseous structures. IMPRESSION: No acute cardiopulmonary process. TECHNICAL DOCUMENTATION: JOB ID: [id number] [email or web address] All Rights Reserved Reading location - IP/workstation name: [email or web address]
[2019-04-04 15:24] LABS: ABSOLUTE EOSINOPHILS # (AUTO) 0.1 10^3/uL (0.0-0.6); ABSOLUTE LYMPHOCYTES (AUTO) 1.1 10^3/uL (0.5-4.7); BASOPHILS % (AUTO) 0.6 % (0-2); EOSINOPHILS % (AUTO) 1.7 % (0-6); HEMATOCRIT 43.5 % (36.0-47.0); HEMOGLOBIN 14.6 g/dL (12.0-15.5); LYMPHOCYTES % (AUTO) 13.3 % (13-45); MEAN CORPUSCULAR HEMOGLOBIN 30.9 pg (27.0-33.4); MEAN CORPUSCULAR HGB CONC 33.5 g/dL (32.0-36.0); MEAN CORPUSCULAR VOLUME 92 fl (80-97); MONOCYTES % (AUTO) 12.6 % (3-13); PLATELET COUNT 304 10^3/uL (150-450); RED BLOOD COUNT 4.72 10^6/uL (3.72-5.28); RED CELL DISTRIBUTION WIDTH 13.9 % (11.5-14.0); SEGMENTED NEUTROPHILS % (AUTO) 71.8 % (42-78); TOTAL CELLS COUNTED % (AUTO) 100 %; WHITE BLOOD COUNT 8.3 10^3/uL (4.0-10.5)
[2019-04-04 15:36] LABS: ALBUMIN 4.6 g/dL (3.5-5.0); ALKALINE PHOSPHATASE 86 U/L (38-126); ANION GAP 11 (5-19); ASPARTATE AMINO TRANSFERASE 44 U/L (14-36); BILIRUBIN,DIRECT 0.1 mg/dL (0.0-0.4); BILIRUBIN,TOTAL 0.7 mg/dL (0.2-1.3); BLOOD UREA NITROGEN 19 mg/dL (7-20); CALCIUM 11.3 mg/dL (8.4-10.2); CARBON DIOXIDE 29 mmol/L (22-30); CHLORIDE 100 mmol/L (98-107); GLUCOSE 106 mg/dL (75-110); POTASSIUM 4.8 mmol/L (3.6-5.0); TOTAL PROTEIN 7.7 g/dL (6.3-8.2)
[2019-04-04 15:48] LABS: NT PRO BNP 38 pg/mL (5-900)
[2019-04-04 16:03] LABS: TROPONIN I < 0.012 ng/mL
--- NOTE | 2019-04-04 17:47 | ER Document Report ---
ED General - General Chief Complaint: Chest Pain Stated Complaint: CHEST PAIN Time Seen by Provider: 04/04/19 14:12 Primary Care Provider: TACOS TOBIN NP [Primary Care Provider] - Follow up as needed Notes: 53-year-old female presents emergency department complaining of right shoulder pain that is been going on for at least the past 2 to 3 weeks but it worsened today. States that it radiates down to her hand, across her chest up into the right side of her chest and neck and into the right side of her back. States that it feels like a burning pain and that her hand goes red and burning when the pain comes on as well. Denies any numbness to the hand but states that the sensation is somewhat different than the other hand. States that it worsens when she lays down but it improves when she walks around and moves it a little bit. Denies any shortness of breath with this. States that she told her doctor about 1 to 2 weeks ago and her doctor squeezed on her shoulder and her neck and it made the pain worse. Was told that it was muscular, was not given any medications for this. Denies any injury, denies any trauma, denies any fever. Has a history of rheumatoid arthritis. TRAVEL OUTSIDE OF THE [place] IN LAST 30 DAYS: No - Related Data Allergies/Adverse Reactions: Penicillins Allergy (Verified 01/15/19 12:06) Past Medical History - General Information source: Patient - Social History Smoking Status: Former Smoker Chew tobacco use (# tins/day): No Frequency of alcohol use: None Drug Abuse: None Family History: Reviewed & Not Pertinent Patient has suicidal ideation: No Patient has homicidal ideation: No - Past Medical History Cardiac Medical History: Reports: Hx Hypercholesterolemia, Hx Hypertension Pulmonary Medical History: Reports: Hx COPD, Hx Pneumonia, Hx Sleep Apnea Endocrine Medical History: Reports: Hx Diabetes Mellitus Type 2 Renal/ Medical History: Denies: Hx Peritoneal Dialysis Musculoskeletal Medical History: Reports Hx Arthritis - rheumatoid arthritis Psychiatric Medical History: Denies: Hx Depression Past Surgical History: Reports: Hx Abdominal Surgery - hernia repair, Hx Orthopedic Surgery - right hand, great toe, Hx Thyroid Surgery - hypo, Hx Urina ry Tract Surgery - bladder tacComment Only: Hx Tonsillectomy - adenoids Review of Systems - Review of Systems Constitutional: No symptoms reported EENT: No symptoms reported Cardiovascular: See HPI, Chest pain - Pain radiating from her shoulder to her chest Respiratory: No symptoms reported. denies: Short of breath Gastrointestinal: No symptoms reported Musculoskeletal: See HPI Neurological/Psychological: See HPI - No true numbness but some decreased sensation to the right hand. -: Yes All other systems reviewed and negative Physical Exam - Vital signs Vitals: Temp Pulse Resp BP Pulse Ox 98.3 F 77 24 H 142/90 H 93 04/04/19 13:06 04/04/19 13:06 04/04/19 13:06 04/04/19 13:06 04/04/19 13:06 Interpretation: Tachypneic - Notes Notes: GENERAL: Alert, interacts well. Obese. HEAD: Normocephalic, atraumatic EYES: Pupils equal, round and reactive to light, extraocular movements intact. ENT: Oral mucosa moist, tongue midline. NECK: Full range of motion, supple, trachea midline. LUNGS: Clear to auscultation bilaterally, no wheezes, rales or rhonchi, no respiratory distress. HEART: Regular rate and rhythm, no murmurs, gallops, rubs. ABDOMEN: Soft, nontender, nondistended, bowel sounds present in all 4 quadrants. EXTREMITIES: Moves all 4 extremities spontaneously, deformities to the joints in the hands consistent with rheumatoid arthritis, restricted abduction of the right shoulder to approximately 80 degrees, tenderness with palpation across the cervical portion of the trapezius, across the sternocleidomastoid muscle and across the shoulder joint itself, no deformity palpated. 5 out of 5 muscle strength in the right upper extremity in all movements although anything that moves the shoulder does cause pain. Radial and dorsalis pedis pulses 2/4 bilaterally. No cyanosis. NEUROLOGICAL: Alert and oriented x3, normal speech, biceps and patellar DTRs 2+ bilaterally. Complains of abnormal sensation to the right hand, patient can feel me touching her hand she just says its tip of the motor hand, this is glove type distribution, does not follow a particular dermatome. PSYCH: Normal mood, normal affect. SKIN: Warm, Dry, normal turgor. Course - Re-evaluation Re-evalutation: 04/04/19 17:53 CBC unremarkable, CMP grossly unremarkable with the exception of an elevated calcium at 11.3, cardiac enzymes negative after 3 weeks of right shoulder and chest pain, this is not likely cardiac. Pain is reproducible on physical examination, chest x-ray shows no acute process, given her history of rheumatoid arthritis I am going to get dedicated x-ray imaging of her shoulder. If this is negative patient will be given muscle relaxers and discharged to home. Recommended follow-up with primary care physician as an outpatient if the pain continues as she may end up needing an MRI of the neck to look for nerve impingement. No evidence of acute impingement at this time that would need emergent surgical intervention. 04/04/19 20:28 Shoulder x-ray does not show any sign of injury. Urinalysis does show a urinary tract infection which has absolutely nothing to do with this right shoulder pain the patient is having however I will treat her with Bactrim. Patient will be discharged home with muscle relaxers. - Vital Signs Vital signs: Temp Pulse Resp BP Pulse Ox 98.3 F 77 18 118/67 96 04/04/19 13:06 04/04/19 13:06 04/04/19 18:04 04/04/19 18:04 04/04/19 18:10 - Laboratory Result Diagrams: 04/04/19 14:48 04/04/19 14:48 Laboratory results interpreted by me: 04/04/19 04/04/19 14:48 14:48 Est GFR (MDRD) Non-Af 58 L Calcium 11.3 H AST 44 H Urine Protein 100 H Urine Ketones TRACE H Urine Nitrite POSITIVE H Urine Bilirubin SMALL H Urine Urobilinogen 2.0 H Ur Leukocyte Esterase SMALL H - EKG Interpretation by Me Additional EKG results interpreted by me: 04/04/19 17:54 EKG shows sinus rhythm at a rate of 74, left axis deviation, normal intervals, no ST segment elevations or depressions, per my interpretation. Discharge - Discharge Clinical Impression: Neck pain on right side, Right-sided chest pain Right shoulder pain Qualifiers: Chronicity: acute Qualified Code(s): M25.511 - Pain in right shoulder Urinary tract infection Qualifiers: Urinary tract infection type: acute cystitis Hematuria presence: without hematuria Qualified Code(s): N30.00 - Acute cystitis without hematuria Condition: Stable Disposition: HOME, SELF-CARE Additional Instructions: Your pain appears to be coming from a muscle spasm in your neck. I have prescribed muscle relaxers to help with this. Please take 1 to 2 tablets of the Flexeril every 8 hours as needed for the next 5 days. If your pain persists please follow-up with your primary care physician. If you lose the ability to move your arm, develop significant weakness, lose the ability to feel your arm or develop any fevers or new or concerning symptoms please return to the emergency department. Your urinalysis today did reveal a mild urinary tract infection. I have prescribed antibiotics to treat this. Please take them as directed until they are gone. Prescriptions: Sulfamethoxazole/Trimethoprim [Bactrim Ds Tablet] 1 each PO BID #10 tablet Cyclobenzaprine HCl [Flexeril 5 mg Tablet] 5 - 10 mg PO TID #30 tablet Referrals: TACOS TOBIN NP [Primary Care Provider] - Follow up as needed
--- NOTE | 2019-04-04 19:11 | RADIOLOGY REPORT (SQ) ---
EXAM DESCRIPTION: SHOULDER RIGHT 2 OR MORE VIEWS COMPLETED DATE/TIME: 04/04/2019 7:02 pm REASON FOR STUDY: right shoulder pain, RA COMPARISON: None. NUMBER OF VIEWS: Three views. TECHNIQUE: Internal rotation, external rotation, and Y view images acquired of the right shoulder. LIMITATIONS: None. FINDINGS: MINERALIZATION: Normal. BONES: No acute fracture. No worrisome bone lesions. JOINTS: No dislocation. VISUALIZED LUNGS AND RIBS: No pneumothorax. No rib fracture. SOFT TISSUES: No radiopaque foreign body. OTHER: No other significant finding. IMPRESSION: NEGATIVE STUDY OF THE RIGHT SHOULDER. NO RADIOGRAPHIC EVIDENCE OF ACUTE INJURY. TECHNICAL DOCUMENTATION: JOB ID: [id number] [employer]- All Rights Reserved Reading location - IP/workstation name: [email or web address]
[2019-04-04 19:54] LABS: APPEARANCE,URINE CLOUDY; BILIRUBIN,URINE SMALL (NEGATIVE); COLOR,URINE AMBER; GLUCOSE, URINE NEGATIVE (NEGATIVE); KETONES,URINE TRACE mg/dL (NEGATIVE); LEUKOCYTE ESTERASE,URINE SMALL (NEGATIVE); NITRITE,URINE POSITIVE (NEGATIVE); PROTEIN,URINE 100 mg/dL (NEGATIVE)
[2019-04-04] MEDS ORDERED: CYCLOBENZAPRINE HCL 10 MG TABLET PO ONE (20:51)
[2019-04-04 21:08] VITALS: BP 145/81
--- NOTE | 2019-04-05 00:27 | EKG REPORT ---
SEVERITY:- ABNORMAL ECG - SINUS RHYTHM LEFT VENTRICULAR HYPERTROPHY : Confirmed by: Mayuri Duong MD 05-Apr-2019 00:27:12
== END 2019-04-04 21:08 | disposition home or self-care (01) ==
LOC: ER 12:49
DX: N30.00 Acute cystitis without hematuria (principal); R07.9 Chest pain, unspecified; M54.2 Cervicalgia; M25.511 Pain in right shoulder; E78.00 Pure hypercholesterolemia, unspecified; I10 Essential (primary) hypertension; E11.9 Type 2 diabetes mellitus without complications; J44.9 Chronic obstructive pulmonary disease, unspecified; Z88.0 Allergy status to penicillin
CPT/HCPCS: 93005; 36415; 87086; 85025; 87088; 80053; 81001; 84484; 83880; 71045; 73030; 93010; A9270 ×3